=== PATIENT | female | born 1945 | race Caucasian/White ===

== ENCOUNTER 2018-01-12 01:25 | Inpatient (IN) | payer OTHER, MEDICARE ==
[~2018-01-12] VITALS: Ht 165.1 cm; Wt 136.1 kg
[2018-01-12 01:28] VITALS: BP_SYST 163
[2018-01-12] MEDS ORDERED: fentaNYL CITRATE/PF 100 MCG/2 ML AMP IVP ONE (01:45)
[2018-01-12] MEDS ORDERED: ONDANSETRON HCL 4 MG/2 ML VIAL IVP ONE (01:45)
[2018-01-12 02:11] LABS: BASOPHILS # (AUTO) 0.1 K/uL (0.0-0.2); BASOPHILS % (AUTO) 0.8 % (0.0-2.0); EOSINOPHILS # (AUTO) 0.3 K/uL (0.0-0.4); EOSINOPHILS % (AUTO) 2.2 % (0.0-4.0); HEMATOCRIT 43.8 % (36-48); HEMOGLOBIN 14.3 g/dL (12.0-16.0); LYMPHOCYTES % (AUTO) 15.3 % (20.5-51.5); MEAN CORPUSCULAR HEMOGLOBIN 29 pg (27-31); MEAN CORPUSCULAR HGB CONC 33 % (32-36); MEAN CORPUSCULAR VOLUME 87 fL (79.0-98.0); MONOCYTES # (AUTO) 0.9 K/uL (0.0-1.0); MONOCYTES % (AUTO) 6.7 % (1.7-9.3); NEUTROPHILS # (AUTO) 9.8 K/uL (1.8-7.7); PLATELET COUNT (AUTO) 284 K/uL (130-430); RED BLOOD CELL COUNT(AUTO) 5.01 MIL/uL (4.2-6.2); RED CELL DISTRIBUTION WIDTH 12.7 % (9.0-15.0); WHITE BLOOD COUNT (AUTO) 13.1 K/uL (4.8-10.8)
[2018-01-12 02:19] LABS: ANION GAP 12 (5-15); CALCIUM 9.8 mg/dL (8.4-11.0); CHLORIDE 103 mmol/L (98-107); CREATININE 0.92 mg/dL (0.55-1.30); GLUCOSE 163 mg/dL (70-99); POTASSIUM 4.4 mmol/L (3.5-5.1); SODIUM SERUM 138 mmol/L (136-145); UREA NITROGEN, BLOOD 24 mg/dL (8-21)
[2018-01-12 02:23] LABS: ALANINE AMINOTRANSFERASE 42 U/L (12-78); ALBUMIN 3.6 g/dL (3.4-4.8); ASPARTATE AMINOTRANSFERASE 27 U/L (10-37); LIPASE 140 U/L (73-393); TOTAL BILIRUBIN 0.6 mg/dL (0.0-1.0)
[2018-01-12 03:26] LABS: BILIRUBIN,URINE NEGATIVE (NEGATIVE); BLOOD, URINE NEGATIVE (NEGATIVE); CLARITY/URINE CLEAR (CLEAR); COLOR,URINE YELLOW (YELLOW); GLUCOSE,URINE NEGATIVE (NEGATIVE); KETONES,URINE NEGATIVE (NEGATIVE); LEUKOCYTE ESTERASE ,URINE 2+ (NEGATIVE); NITRITE, URINE NEGATIVE (NEGATIVE); PROTEIN URINE NEGATIVE (NEGATIVE); UROBILINOGEN,URINE 0.2 (0.2-1.0)
[2018-01-12 03:32] LABS: BACTERIA,URINE MODERATE /HPF (None Seen); RBC,URINE 0-3 /HPF (0-3); WBC,URINE 20-50 /HPF (0-3)
[2018-01-12] MEDS ORDERED: metroNIDAZOLE 500 mg/NS 100 ML IV ONE (03:45)
[2018-01-12] MEDS ORDERED: MORPHINE 2 MG/ML INJ. SYRINGE IVP ONE (03:45)
[2018-01-12] MEDS ORDERED: cefTRIAXone 1 GM IVPB PREMIX 50 ML IV ONE (03:45)
[2018-01-12] MEDS ORDERED: AMLO5TAB4 PO (03:48)
[2018-01-12] MEDS ORDERED: DICL75TA5 PO (03:48)
[2018-01-12] MEDS ORDERED: CLOP75TA2 PO (03:48)
[2018-01-12] MEDS ORDERED: CLOB30CR27 TP (03:48)
[2018-01-12] MEDS ORDERED: GABA-531 PO ×2 (03:48→10:53)
[2018-01-12] MEDS ORDERED: LOP600 PO ×2 (03:49→10:56)
[2018-01-12] MEDS ORDERED: LISI-600 PO ×2 (03:56→10:56)
[2018-01-12] MEDS ORDERED: LORA1TAB PO (03:56)
[2018-01-12] MEDS ORDERED: TRAM50TA92 PO (03:56)
[2018-01-12] MEDS ORDERED: PRAV40TA PO ×2 (03:56→10:56)
[2018-01-12] MEDS ORDERED: ONDA4TAB5 PO (03:56)
[2018-01-12] MEDS ORDERED: LEVO75TA7 PO (03:56)
[2018-01-12] MEDS ORDERED: NADO20TA9 PO (03:56)
[2018-01-12] MEDS ORDERED: LATA2.5D6 OP (03:56)
[2018-01-12] MEDS ORDERED: PRO40 PO (03:56)
[2018-01-12] MEDS ORDERED: MORPHINE SULFATE 10 MG/ML VIAL ONE (04:00)
[2018-01-12 04:15] VITALS: BP_SYST 131
[2018-01-12] MEDS ORDERED: MORPHINE 4 MG/ML INJ. SYRINGE IVP PRN (07:30)
[2018-01-12] MEDS ORDERED: LORazepam 1 MG TABLET PO PRN (07:30)
[2018-01-12] MEDS: GABAPENTIN 300 MG CAPSULE PO SCH ×4 (08:25→21:32)
[2018-01-12] MEDS: D5NS 1,000 ML IV SCH (08:26)
[2018-01-12] MEDS: LEVOTHYROXINE SODIUM 0.075 MG TABLET PO SCH (08:26)
[2018-01-12] MEDS: CLOPIDOGREL BISULFATE 75 MG TABLET PO SCH (08:26)
[2018-01-12] MEDS: MORPHINE 4 MG/ML INJ. SYRINGE IVP PRN ×2 (08:26→17:14)
[2018-01-12] MEDS: metroNIDAZOLE 500 mg/NS 100 ML IV SCH ×3 (08:36→23:37)
[2018-01-12 08:45] VITALS: BP_SYST 137
[2018-01-12] MEDS: SIMVASTATIN 20 MG TABLET PO SCH (09:00)
[2018-01-12] MEDS: LISINOPRIL 20 MG TABLET PO SCH (09:00)
[2018-01-12] MEDS ORDERED: DEXTROSE 50% JECT 50 ML DISP.SYRIN IVP PRN (09:30)
[2018-01-12] MEDS: LEVOFLOXACIN 500 MG/D5W 100 ML IV SCH (09:52)
[2018-01-12] MEDS: ONDANSETRON HCL 4 MG/2 ML VIAL IVP PRN ×3 (09:52→23:37)
[2018-01-12] MEDS ORDERED: GLIM4TAB PO (09:58)
[2018-01-12] MEDS: METOPROLOL TARTRATE 25 MG TABLET PO SCH ×2 (10:03→21:32)
[2018-01-12] MEDS: amLODIPine BESYLATE 5 MG TABLET PO SCH (10:04)
[2018-01-12] MEDS: PANTOPRAZOLE SODIUM 40 MG TAB PO SCH (10:04)
[2018-01-12] MEDS: GEMFIBROZIL 600 MG TABLET (LOPID) PO SCH (10:04)
[2018-01-12] MEDS: INSULIN REGULAR, HUMAN 100 UNITS/ML, 10 ML VIAL (novoLIN R) SUBCUT PRN (12:07)
[2018-01-12 18:05] VITALS: BP_SYST 135
[2018-01-12] MEDS: METOCLOPRAMIDE HCL 10 MG/2 ML VIAL IVP PRN (18:36)
[2018-01-12 19:50] VITALS: BP_SYST 124
[2018-01-12] MEDS: LATANOPROST 2.5 ML DROPS (XALATAN) OP SCH (21:33)
[2018-01-12] MEDS: ACETAMINOPHEN 325 MG TABLET PO PRN (23:38)
[2018-01-13 00:49] VITALS: BP_SYST 145
[2018-01-13] MEDS: D5NS 1,000 ML IV SCH ×3 (05:35→22:48)
[2018-01-13] MEDS: LEVOTHYROXINE SODIUM 0.075 MG TABLET PO SCH (06:26)
[2018-01-13 08:00] VITALS: BP_SYST 128
[2018-01-13] MEDS: CLOPIDOGREL BISULFATE 75 MG TABLET PO SCH (08:54)
[2018-01-13] MEDS: PANTOPRAZOLE SODIUM 40 MG TAB PO SCH (08:55)
[2018-01-13] MEDS: SIMVASTATIN 20 MG TABLET PO SCH (08:55)
[2018-01-13] MEDS: GEMFIBROZIL 600 MG TABLET (LOPID) PO SCH (08:55)
[2018-01-13] MEDS: GABAPENTIN 300 MG CAPSULE PO SCH ×4 (08:55→20:26)
[2018-01-13] MEDS: amLODIPine BESYLATE 5 MG TABLET PO SCH (08:56)
[2018-01-13] MEDS: LISINOPRIL 20 MG TABLET PO SCH (08:56)
[2018-01-13] MEDS: METOPROLOL TARTRATE 25 MG TABLET PO SCH ×2 (08:56→20:27)
[2018-01-13] MEDS: ACETAMINOPHEN 325 MG TABLET PO PRN ×3 (08:57→20:36)
[2018-01-13] MEDS: metroNIDAZOLE 500 mg/NS 100 ML IV SCH ×3 (09:00→23:50)
[2018-01-13] MEDS: LEVOFLOXACIN 500 MG/D5W 100 ML IV SCH (10:22)
[2018-01-13] MEDS ORDERED: MINERAL OIL 30 ML UDC PO ONE (10:45)
[2018-01-13] MEDS ORDERED: MAGNESIUM CITRATE 300 ML ORAL SOLUTION PO ONE (10:45)
[2018-01-13 11:03] LABS: BASOPHILS # (AUTO) 0.1 K/uL (0.0-0.2); BASOPHILS % (AUTO) 0.6 % (0.0-2.0); EOSINOPHILS # (AUTO) 0.2 K/uL (0.0-0.4); EOSINOPHILS % (AUTO) 1.8 % (0.0-4.0); HEMOGLOBIN 13.4 g/dL (12.0-16.0); MEAN CORPUSCULAR HEMOGLOBIN 29 pg (27-31); MEAN CORPUSCULAR HGB CONC 33 % (32-36); MEAN CORPUSCULAR VOLUME 88 fL (79.0-98.0); MONOCYTES # (AUTO) 0.6 K/uL (0.0-1.0); MONOCYTES % (AUTO) 5.9 % (1.7-9.3); NEUTROPHILS # (AUTO) 7.5 K/uL (1.8-7.7); NEUTROPHILS % (AUTO) 72.7 % (40.0-70.0); PLATELET COUNT (AUTO) 275 K/uL (130-430); RED BLOOD CELL COUNT(AUTO) 4.66 MIL/uL (4.2-6.2); RED CELL DISTRIBUTION WIDTH 12.7 % (9.0-15.0); WHITE BLOOD COUNT (AUTO) 10.4 K/uL (4.8-10.8)
[2018-01-13 11:09] LABS: ANION GAP 10 (5-15); CALCIUM 9.3 mg/dL (8.4-11.0); CHLORIDE 102 mmol/L (98-107); CREATININE 1.03 mg/dL (0.55-1.30); GLUCOSE 160 mg/dL (70-99); POTASSIUM 4.1 mmol/L (3.5-5.1); SODIUM SERUM 139 mmol/L (136-145); UREA NITROGEN, BLOOD 19 mg/dL (8-21)
[2018-01-13 11:15] LABS: ALANINE AMINOTRANSFERASE 38 U/L (12-78); ALBUMIN 3.4 g/dL (3.4-4.8); ASPARTATE AMINOTRANSFERASE 38 U/L (10-37); TOTAL BILIRUBIN 0.5 mg/dL (0.0-1.0)
[2018-01-13 12:00] VITALS: BP_SYST 128
[2018-01-13 16:00] VITALS: BP_SYST 124
[2018-01-13 20:00] VITALS: BP_SYST 124
[2018-01-13] MEDS: LATANOPROST 2.5 ML DROPS (XALATAN) OP SCH (20:28)
[2018-01-13] MEDS: MINERAL OIL 30 ML UDC PO SCH (20:28)
[2018-01-13 23:46] VITALS: BP_SYST 123
[2018-01-14] VITALS: BP_SYST 119
[2018-01-14] MEDS: MORPHINE 4 MG/ML INJ. SYRINGE IVP PRN (02:16)
[2018-01-14] MEDS: ONDANSETRON HCL 4 MG/2 ML VIAL IVP PRN ×2 (02:19→17:59)
[2018-01-14] MEDS: LEVOTHYROXINE SODIUM 0.075 MG TABLET PO SCH (06:00)
[2018-01-14] MEDS: INSULIN REGULAR, HUMAN 100 UNITS/ML, 10 ML VIAL (novoLIN R) SUBCUT PRN (06:03)
[2018-01-14 08:00] VITALS: BP_SYST 145
[2018-01-14] MEDS: GEMFIBROZIL 600 MG TABLET (LOPID) PO SCH (08:44)
[2018-01-14] MEDS: CLOPIDOGREL BISULFATE 75 MG TABLET PO SCH (08:44)
[2018-01-14] MEDS: SIMVASTATIN 20 MG TABLET PO SCH (08:44)
[2018-01-14] MEDS: metroNIDAZOLE 500 mg/NS 100 ML IV SCH ×3 (08:44→23:44)
[2018-01-14] MEDS: PANTOPRAZOLE SODIUM 40 MG TAB PO SCH (08:44)
[2018-01-14] MEDS: METOPROLOL TARTRATE 25 MG TABLET PO SCH ×2 (08:45→21:04)
[2018-01-14] MEDS: amLODIPine BESYLATE 5 MG TABLET PO SCH (08:45)
[2018-01-14] MEDS: GABAPENTIN 300 MG CAPSULE PO SCH ×3 (08:46→21:03)
[2018-01-14] MEDS: LISINOPRIL 20 MG TABLET PO SCH (08:46)
[2018-01-14] MEDS: MINERAL OIL 30 ML UDC PO SCH ×2 (08:46→21:00)
[2018-01-14] MEDS: LEVOFLOXACIN 500 MG/D5W 100 ML IV SCH (10:39)
[2018-01-14 12:00] VITALS: BP_SYST 138
[2018-01-14] MEDS ORDERED: traMADol HCL HCL 50 MG TABLET (ULTRAM) PO PRN (13:00)
[2018-01-14 16:05] VITALS: BP_SYST 123
[2018-01-14] MEDS: traMADol HCL HCL 50 MG TABLET (ULTRAM) PO PRN ×2 (16:20→23:45)
[2018-01-14 19:20] VITALS: BP_SYST 130
[2018-01-14] MEDS: LATANOPROST 2.5 ML DROPS (XALATAN) OP SCH (21:02)
[2018-01-14] MEDS: DOCUSATE SODIUM 250 MG CAPSULE PO SCH (21:03)
[2018-01-14] MEDS: METOCLOPRAMIDE HCL 10 MG/2 ML VIAL IVP PRN (23:45)
[2018-01-15 00:29] VITALS: BP_SYST 111
[2018-01-15] MEDS: LEVOTHYROXINE SODIUM 0.075 MG TABLET PO SCH (06:30)
[2018-01-15 08:00] VITALS: BP_SYST 141
[2018-01-15] MEDS: GEMFIBROZIL 600 MG TABLET (LOPID) PO SCH (08:05)
[2018-01-15] MEDS: DOCUSATE SODIUM 250 MG CAPSULE PO SCH (08:06)
[2018-01-15] MEDS: CLOPIDOGREL BISULFATE 75 MG TABLET PO SCH (08:06)
[2018-01-15] MEDS: SIMVASTATIN 20 MG TABLET PO SCH (08:06)
[2018-01-15] MEDS: PANTOPRAZOLE SODIUM 40 MG TAB PO SCH (08:07)
[2018-01-15] MEDS: amLODIPine BESYLATE 5 MG TABLET PO SCH (08:07)
[2018-01-15] MEDS: METOPROLOL TARTRATE 25 MG TABLET PO SCH (08:08)
[2018-01-15] MEDS: LISINOPRIL 20 MG TABLET PO SCH (08:08)
[2018-01-15] MEDS: metroNIDAZOLE 500 mg/NS 100 ML IV SCH (08:09)
[2018-01-15] MEDS: MINERAL OIL 30 ML UDC PO SCH (09:00)
[2018-01-15] MEDS: GABAPENTIN 300 MG CAPSULE PO SCH (09:00)
[2018-01-15] MEDS: ACETAMINOPHEN 325 MG TABLET PO PRN (09:19)
[2018-01-15] MEDS: LEVOFLOXACIN 500 MG/D5W 100 ML IV SCH (09:19)
[2018-01-15 12:00] VITALS: BP_SYST 117
[2018-01-15] MEDS ORDERED: METR500T PO (13:34)
[2018-01-15] MEDS ORDERED: LEVO500T20 PO (13:34)
[2018-01-15] MEDS ORDERED: L.RH1CAP PO (13:35)
[2018-01-15 13:56] VITALS: BP_SYST 97
== END 2018-01-15 15:00 | disposition home or self-care (01) | DRG 392 ==
LOC: SED 01:25 → SMU 03:57
PROVIDERS: ADMIT Internal Medicine Hospice and Palliative Medicine; ATTEND Internal Medicine Hospice and Palliative Medicine
DX: K57.92 Diverticulitis of intestine, part unspecified, without perforation or abscess without bleeding (principal); E11.9 Type 2 diabetes mellitus without complications; E66.01 Morbid (severe) obesity due to excess calories; N39.0 Urinary tract infection, site not specified; Z68.42 Body mass index [BMI] 45.0-49.9, adult; I25.10 Atherosclerotic heart disease of native coronary artery without angina pectoris; I10 Essential (primary) hypertension; K59.00 Constipation, unspecified; E78.5 Hyperlipidemia, unspecified; M54.9 Dorsalgia, unspecified; G89.4 Chronic pain syndrome; Z95.5 Presence of coronary angioplasty implant and graft
CPT/HCPCS: 36415; 80053; 81000-TC; 82962; 83690-TC; 85025; 87040-TC; 87086; 87186-TC; 96365; 96375; 99285; J0696; J1815; J1956; J2270; J2405; J2765; J3010; J3490; J7042

== ENCOUNTER 2019-11-03 13:49 | Emergency (ER) | payer OTHER, MEDICARE ==
[~2019-11-03] VITALS: Ht 165.1 cm; Wt 122.5 kg
[~2019-11-03 13:49] MED LIST: AMLO5TAB4 PO; CLOB30CR27 TP; CLOP75TA2 PO; DICL75TA5 PO; GABA-531 PO; GLIM4TAB PO; L.RH1CAP PO; LEVO500T20 PO; LEVO75TA7 PO; LISI-600 PO; LOP600 PO; LORA1TAB PO; METR500T PO; NADO20TA9 PO; ONDA4TAB5 PO; PRAV40TA PO; PRO40 PO; TRAM50TA92 PO; XALEYE OP
[2019-11-03 14:12] VITALS: BP_SYST 162
--- NOTE | 2019-11-03 14:12 | NUR ---
Patient to ER bed 7 to gown for evaluation. Side rails up. Report given to MAGALI Celestin.
--- NOTE | 2019-11-03 14:36 | NUR ---
MD ODOMAW AT BEDSIDE ASSESSING.
[2019-11-03] MEDS ORDERED: KETOROLAC TROMETHAMINE 60 MG/2 ML VIAL IM ONE ×2 (14:45→15:15)
[2019-11-03 14:48] LABS: BILIRUBIN,URINE NEGATIVE (NEGATIVE); BLOOD, URINE NEGATIVE (NEGATIVE); CLARITY/URINE CLEAR (CLEAR); COLOR,URINE YELLOW (YELLOW); GLUCOSE,URINE NEGATIVE (NEGATIVE); KETONES,URINE NEGATIVE (NEGATIVE); LEUKOCYTE ESTERASE ,URINE 1+ (NEGATIVE); NITRITE, URINE NEGATIVE (NEGATIVE); PROTEIN URINE NEGATIVE (NEGATIVE); UROBILINOGEN,URINE 0.2 (0.2-1.0)
[2019-11-03 15:02] LABS: BACTERIA,URINE FEW /HPF (None Seen); MUCUS,URINE None Seen /LPF (None Seen); RBC,URINE NONE SEEN /HPF (0-3)
[2019-11-03] MEDS ORDERED: cefTRIAXone 1 GM in LIDOCAINE 1%, 20 ML MDV 2.1 ML IM ONE (15:15)
[2019-11-03] MEDS ORDERED: CLOB50SO2 TP (16:20)
[2019-11-03] MEDS ORDERED: GLU850 PO (16:20)
[2019-11-03] MEDS ORDERED: [UNRECOGNIZED DRUG - OTHER] VG (16:20)
[2019-11-03] MEDS ORDERED: MOME45CR17 TP (16:20)
[2019-11-03] MEDS ORDERED: nystatin TP (16:20)
[2019-11-03] MEDS ORDERED: HYDR-4272 PO (16:20)
[2019-11-03] MEDS ORDERED: CHOL500037 PO (16:20)
[2019-11-03] MEDS ORDERED: LISI40TA4 PO (16:20)
[2019-11-03] MEDS ORDERED: SITA100T11 PO (16:20)
--- NOTE | 2019-11-03 16:26 | NUR ---
Patient given written and verbal discharge instructions and verbalizes understanding. ER MD discussed with patient the results and treatment provided. Patient in stable condition. ID arm band removed. Rx of CIPRO given. Patient educated on pain management and to follow up with PMD. Pain Scale 1/10. Opportunity for questions provided and answered. Medication side effect fact sheet provided.
[2019-11-03 16:30] VITALS: BP_SYST 151
== END 2019-11-03 16:30 | disposition home or self-care (01) ==
LOC: SED 13:49
DX: N39.0 Urinary tract infection, site not specified (principal); J45.909 Unspecified asthma, uncomplicated; E11.9 Type 2 diabetes mellitus without complications; I10 Essential (primary) hypertension; Z88.5 Allergy status to narcotic agent; Z79.84 Long term (current) use of oral hypoglycemic drugs; Z79.899 Other long term (current) drug therapy
CPT/HCPCS: 81000; 82962; 87086; 96372; 99283; J0696; J1885; J2001

== ENCOUNTER 2021-05-25 10:01 | Emergency (ER) | payer OTHER, MEDICARE ==
[~2021-05-25] VITALS: Ht 165.1 cm; Wt 117.9 kg
[~2021-05-25 10:01] MED LIST changes: +CHOL500037 PO; -CLOB30CR27 TP; +CLOB50SO2 TP; -CLOP75TA2 PO; -DICL75TA5 PO; +GLU850 PO; +HYDR-4272 PO; -LEVO500T20 PO; -LISI-600 PO; +LISI40TA13 PO; -METR500T PO; +MOME45CR17 TP; +SITA100T11 PO; +[UNRECOGNIZED DRUG - OTHER] VG; +nystatin TP
[2021-05-25 10:20] VITALS: BP_SYST 143
--- NOTE | 2021-05-25 10:20 | NUR ---
Patient to ER bed 7 to gown for evaluation. Side rails up.
--- NOTE | 2021-05-25 10:21 | NUR ---
Pt bib ambulance with complaint of RLQ abdominal pain X1day 5/10 and constipation X3days. Pt AAOX4 speaking full sentences. Pt resting in gurney attached to monitor VSS no distress noted.
--- NOTE | 2021-05-25 10:31 | NUR ---
ER at bedside examining patient.
--- NOTE | 2021-05-25 10:48 | NUR ---
Lab at bedside.
--- NOTE | 2021-05-25 10:58 | NUR ---
Pt assisted to restroom.
[2021-05-25 11:08] LABS: BASOPHILS # (AUTO) 0.2 K/uL (0.0-0.2); EOSINOPHILS # (AUTO) 0.2 K/uL (0.0-0.4); EOSINOPHILS % (AUTO) 1.1 % (0.0-4.0); HEMATOCRIT 45.2 % (36-48); HEMOGLOBIN 15.2 g/dL (12.0-16.0); LYMPHOCYTES # (AUTO) 1.5 K/uL (1.0-5.5); LYMPHOCYTES % (AUTO) 9.5 % (20.5-51.5); MEAN CORPUSCULAR HEMOGLOBIN 29 pg (27-31); MEAN CORPUSCULAR HGB CONC 34 % (32-36); MEAN CORPUSCULAR VOLUME 86 fL (79.0-98.0); MONOCYTES # (AUTO) 1.1 K/uL (0.0-1.0); MONOCYTES % (AUTO) 7.1 % (1.7-9.3); NEUTROPHILS # (AUTO) 12.9 K/uL (1.8-7.7); NEUTROPHILS % (AUTO) 81.3 % (40.0-70.0); PLATELET COUNT (AUTO) 227 K/uL (130-430); RED BLOOD CELL COUNT(AUTO) 5.24 MIL/uL (4.2-6.2); RED CELL DISTRIBUTION WIDTH 15.7 % (9.0-15.0); WHITE BLOOD COUNT (AUTO) 15.9 K/uL (4.8-10.8)
--- NOTE | 2021-05-25 11:08 | NUR ---
Pt off to CT with tech on a wheelchair.
[2021-05-25 11:09] LABS: ANION GAP 11 (5-15); CALCIUM 9.2 mg/dL (8.4-11.0); CHLORIDE 104 mmol/L (98-107); CREATININE 1.24 mg/dL (0.55-1.30); GLUCOSE 205 mg/dL (70-99); POTASSIUM 4.8 mmol/L (3.5-5.1); SODIUM SERUM 137 mmol/L (136-145); UREA NITROGEN, BLOOD 32 mg/dL (8-21)
[2021-05-25 11:15] LABS: ALANINE AMINOTRANSFERASE 53 U/L (12-78); ALBUMIN 3.6 g/dL (3.4-4.8); ASPARTATE AMINOTRANSFERASE 32 U/L (10-37); TOTAL BILIRUBIN 0.7 mg/dL (0.0-1.0)
--- NOTE | 2021-05-25 11:15 | NUR ---
Pt back from CT.
--- NOTE | 2021-05-25 11:42 | NUR ---
# 22 gauge angiocath placed to LWrist. Use of asceptic technique. Opsite placed over site. Blood return noted. Blood for lab drawn from site. Flushed with 10 cc of normal saline. No evidence of infiltration noted. Patient tolerated well.
[2021-05-25] MEDS: SODIUM PHOSPHATE,MONO-DIBASIC 133 ML ENEMA RC ONE (11:45)
[2021-05-25] MEDS: NACL 0.9% 1,000 ML IV ONE (11:45)
--- NOTE | 2021-05-25 11:51 | NUR ---
Enema given pt tolerated well. No distress noted.
--- NOTE | 2021-05-25 12:47 | NUR ---
Pt had a large bowell movement at this time at this time, MD notified.
[2021-05-25] MEDS ORDERED: BISA10SU77 RC (13:46)
[2021-05-25 14:14] LABS: BILIRUBIN,URINE NEGATIVE (NEGATIVE); BLOOD, URINE 1+ (NEGATIVE); COLOR,URINE YELLOW (YELLOW); GLUCOSE,URINE 3+ (NEGATIVE); KETONES,URINE NEGATIVE (NEGATIVE); LEUKOCYTE ESTERASE ,URINE NEGATIVE (NEGATIVE); NITRITE, URINE NEGATIVE (NEGATIVE); PROTEIN URINE NEGATIVE (NEGATIVE); UROBILINOGEN,URINE 0.2 (0.2-1.0)
[2021-05-25 14:20] LABS: CLARITY/URINE SLIGHTLY HAZY (CLEAR)
--- NOTE | 2021-05-25 14:28 | NUR ---
Patient given written and verbal discharge instructions and verbalizes understanding. ER MD discussed with patient the results and treatment provided. Patient in stable condition. ID arm band removed. Rx of Bisacodyl given. Patient educated on pain management and to follow up with PMD. Pain Scale 2/10 tolerable for patient . Opportunity for questions provided and answered. Medication side effect fact sheet provided.
[2021-05-25 14:29] VITALS: BP_SYST 143
[2021-05-25 14:50] LABS: BACTERIA,URINE FEW /HPF (None Seen)
[2021-05-25 14:51] LABS: MUCUS,URINE 1+ /LPF (None Seen)
== END 2021-05-25 14:29 | disposition home or self-care (01) ==
LOC: SED 10:01
DX: K59.00 Constipation, unspecified (principal); J45.909 Unspecified asthma, uncomplicated; I10 Essential (primary) hypertension; E11.9 Type 2 diabetes mellitus without complications; Z88.5 Allergy status to narcotic agent; Z79.84 Long term (current) use of oral hypoglycemic drugs; Z79.899 Other long term (current) drug therapy
CPT/HCPCS: 36415; 74176; 76376; 80053; 81000; 85025; 87086; 96360; 99284; J7030

== ENCOUNTER 2021-08-14 12:34 | Inpatient (IN) | payer OTHER, MEDICARE, SELFPAY ==
[~2021-08-14] VITALS: Ht 165.1 cm; Wt 120.2 kg
[~2021-08-14 12:34] MED LIST changes: +BISA10SU77 RC
[2021-08-14 13:00] VITALS: BP_SYST 183
--- NOTE | 2021-08-14 13:07 | NUR ---
Patient to ER bed 5 to gown for evaluation. Side rails up. Report given to Teodoro DE LOS SANTOS.
--- NOTE | 2021-08-14 13:11 | NUR ---
Pt ambulated to restroom for urine specimen.
--- NOTE | 2021-08-14 13:15 | NUR ---
Pt attempted to give urine but was unsuccessfull and missed the cup. Pt given water and will reattempt.
--- NOTE | 2021-08-14 13:15 | NUR ---
Pt came into ER with complaint of burning and frequency with urination with lower abdominal cramping 3/10 with diarrhea X7days. Pt reports getting a urinalysis on tuesday and recieving a call from her physician with an abnormal result but doesnt remember what it was and was advised to come into ER. Pt is on fifth day of Cipro prescribed by her physician. Pt AAOX4 speaking full sentences. Sitting up in rney Vital signs holding no distress noted at this time.
--- NOTE | 2021-08-14 13:40 | NUR ---
Pt ambulated to restroom for urine specimen.
--- NOTE | 2021-08-14 13:48 | NUR ---
Urine collected and sent to lab.
--- NOTE | 2021-08-14 13:59 | NUR ---
ER at bedside examining patient.
--- NOTE | 2021-08-14 14:00 | NUR ---
Lab at bedside.
[2021-08-14 14:13] LABS: BILIRUBIN,URINE NEGATIVE (NEGATIVE); BLOOD, URINE 2+ (NEGATIVE); CLARITY/URINE SL CLOUDY (CLEAR); COLOR,URINE YELLOW (YELLOW); GLUCOSE,URINE 3+ (NEGATIVE); KETONES,URINE NEGATIVE (NEGATIVE); LEUKOCYTE ESTERASE ,URINE TRACE (NEGATIVE); NITRITE, URINE NEGATIVE (NEGATIVE); PROTEIN URINE NEGATIVE (NEGATIVE); UROBILINOGEN,URINE 0.2 (0.2-1.0)
--- NOTE | 2021-08-14 14:35 | NUR ---
Patient transported to radiology via wheelchair, accompanied by tech.
[2021-08-14 14:57] LABS: BASOPHILS # (AUTO) 0.2 K/uL (0.0-0.2); BASOPHILS % (AUTO) 1.3 % (0.0-2.0); EOSINOPHILS # (AUTO) 0.3 K/uL (0.0-0.4); EOSINOPHILS % (AUTO) 2.2 % (0.0-4.0); HEMOGLOBIN 15.2 g/dL (12.0-16.0); LYMPHOCYTES # (AUTO) 1.9 K/uL (1.0-5.5); LYMPHOCYTES % (AUTO) 13.3 % (20.5-51.5); MEAN CORPUSCULAR HEMOGLOBIN 30 pg (27-31); MEAN CORPUSCULAR HGB CONC 34 % (32-36); MEAN CORPUSCULAR VOLUME 88 fL (79.0-98.0); MONOCYTES # (AUTO) 1.2 K/uL (0.0-1.0); MONOCYTES % (AUTO) 8.2 % (1.7-9.3); NEUTROPHILS # (AUTO) 10.7 K/uL (1.8-7.7); PLATELET COUNT (AUTO) 228 K/uL (130-430); RED BLOOD CELL COUNT(AUTO) 5.09 MIL/uL (4.2-6.2); RED CELL DISTRIBUTION WIDTH 14.6 % (9.0-15.0); WHITE BLOOD COUNT (AUTO) 14.3 K/uL (4.8-10.8)
--- NOTE | 2021-08-14 15:06 | NUR ---
Pt back from radiology.
[2021-08-14 15:08] LABS: BACTERIA,URINE RARE /HPF (None Seen); WBC,URINE 20-50 /HPF (0-3)
[2021-08-14 15:10] LABS: ANION GAP 9 (5-15); CALCIUM 9.5 mg/dL (8.4-11.0); CHLORIDE 103 mmol/L (98-107); CREATININE 1.38 mg/dL (0.55-1.30); GLUCOSE 182 mg/dL (70-99); POTASSIUM 4.5 mmol/L (3.5-5.1); SODIUM SERUM 136 mmol/L (136-145); UREA NITROGEN, BLOOD 33 mg/dL (8-21)
[2021-08-14 15:12] LABS: ALANINE AMINOTRANSFERASE 55 U/L (12-78); ALBUMIN 3.5 g/dL (3.4-4.8); ASPARTATE AMINOTRANSFERASE 28 U/L (10-37); LIPASE 110 U/L (73-393); TOTAL BILIRUBIN 0.6 mg/dL (0.0-1.0)
--- NOTE | 2021-08-14 15:20 | NUR ---
# 20 gauge angiocath placed to LFA. Use of asceptic technique. Opsite placed over site. Blood return noted. Blood for lab drawn from site. Flushed with 10 cc of normal saline. No evidence of infiltration noted. Patient tolerated well.
[2021-08-14] MEDS ORDERED: EMPA10TA PO (16:43)
[2021-08-14] MEDS ORDERED: NOR10 PO (16:43)
--- NOTE | 2021-08-14 16:43 | NUR ---
Medication reconciliation completed with information provided by Pt. Any prior medication reconciliation on file was reviewed and corrected.
--- NOTE | 2021-08-14 16:43 | NUR ---
Covid swab collected and sent to lab.
--- NOTE | 2021-08-14 16:59 | NUR ---
Patient transported to radiology via wheelchair, accompanied by tech.
[2021-08-14] MEDS ORDERED: PIPERACILLIN/TAZO 3.375 GM in NS 50 ML IV ONE (17:00)
[2021-08-14] MEDS ORDERED: PIPERACILLIN/TAZOBACTAM 3.375 GM/VIAL (ZOSYN) IV ONE (17:04)
--- NOTE | 2021-08-14 17:10 | NUR ---
Pt back from CT.
--- NOTE | 2021-08-14 17:29 | NUR ---
Patient will be admitted to care of Dr. Adames. Admitted to Medsurg unit. Will go to room pending. Belongings list completed. Complete and up to date summary report printed. SBAR report to be given at bedside with opportunity for questions.
--- NOTE | 2021-08-14 17:30 | NUR ---
Spoke with Madelin charge nurse. Pt will go to room 119A.
--- NOTE | 2021-08-14 17:33 | NUR ---
Transferred pt to room 119A on [facility] accompanied by staff. ETA now
[2021-08-14 18:00] VITALS: BP_SYST 134
--- NOTE | 2021-08-14 18:00 | NUR ---
1800: Received pt A+O x4 from ER at 1800. Pt c/o 04/18 pain to nadira and R shoulder but states both are chronic. IV noted to L FA- 20g- patent. CSMW satisfactory. No headache, dizziness, chest pain, numbness, tingling, edema, SOB, cough. Lungs clear. RA 97%. BS x4. good appetite. ABD obese. passing gas. LBM Aug 13. voiding- burning, frequency, urgency noted. No nausea or vomiting. No skin concerns. IND + 2ww for ADLs and mobility. Dinner tray (diabetic) provided. Slip socks placed on pt. No other voiced concerns. Will continue to monitor.
[2021-08-14 19:02] VITALS: BP_SYST 134
[2021-08-14 20:00] VITALS: BP_SYST 127
[2021-08-14] MEDS ORDERED: 0.45% NS 500 ML IV ONE (20:15)
[2021-08-14] MEDS ORDERED: LORazepam 1 MG TABLET PO PRN (20:15)
[2021-08-14] MEDS ORDERED: DEXTROSE 50% JECT 50 ML DISP.SYRIN IVP PRN (20:15)
[2021-08-14] MEDS ORDERED: traZODone HCL 50 MG TABLET (DESYREL) PO PRN (20:30)
[2021-08-14] MEDS ORDERED: PRAVASTATIN SODIUM 20 MG TABLET (PRAVACHOL) PO SCH (21:00)
[2021-08-14] MEDS ORDERED: NADOLOL 20 MG TABLET(CORGARD) PO SCH (21:00)
[2021-08-14] MEDS: LIDOCAINE PATCH 5% 1 EA TP SCH (21:30)
[2021-08-14] MEDS: GEMFIBROZIL 600 MG TABLET (LOPID) PO SCH (21:47)
[2021-08-14] MEDS: GABAPENTIN 300 MG CAPSULE PO SCH (21:48)
[2021-08-14] MEDS: GLIMEPIRIDE 2 MG TABLET PO SCH (21:48)
[2021-08-14] MEDS: DOCUSATE SODIUM 250 MG CAPSULE PO SCH (21:48)
[2021-08-14] MEDS: INSULIN REGULAR, HUMAN 100 UNITS/ML, 10 ML VIAL (humuLIN R) SUBCUT PRN (22:02)
[2021-08-15] MEDS ORDERED: PIPERACILLIN/TAZOBACTAM 3.375 GM/VIAL (ZOSYN) IV ONE ×2 (00:14→06:58)
[2021-08-15] MEDS: PIPERACILLIN/TAZO 3.375/DEX-IS 50 ML IV SCH ×4 (00:20→18:00)
[2021-08-15] MEDS: ONDANSETRON HCL 4 MG/2 ML VIAL IVP PRN ×2 (01:10→12:55)
[2021-08-15] MEDS: ACETAMINOPHEN 325 MG TABLET PO PRN ×2 (02:15→12:51)
[2021-08-15 05:05] VITALS: BP_SYST 120
[2021-08-15] MEDS: LEVOTHYROXINE SODIUM 0.075 MG TABLET PO SCH (06:30)
[2021-08-15] MEDS: GLIMEPIRIDE 2 MG TABLET PO SCH ×4 (06:30→22:11)
[2021-08-15 07:24] LABS: BASOPHILS # (AUTO) 0.1 K/uL (0.0-0.2); EOSINOPHILS # (AUTO) 0.3 K/uL (0.0-0.4); EOSINOPHILS % (AUTO) 2.7 % (0.0-4.0); HEMATOCRIT 44.9 % (36-48); HEMOGLOBIN 14.8 g/dL (12.0-16.0); LYMPHOCYTES # (AUTO) 2.4 K/uL (1.0-5.5); LYMPHOCYTES % (AUTO) 20.8 % (20.5-51.5); MEAN CORPUSCULAR HEMOGLOBIN 29 pg (27-31); MEAN CORPUSCULAR HGB CONC 33 % (32-36); MEAN CORPUSCULAR VOLUME 89 fL (79.0-98.0); MONOCYTES # (AUTO) 1.1 K/uL (0.0-1.0); MONOCYTES % (AUTO) 10.1 % (1.7-9.3); NEUTROPHILS # (AUTO) 7.4 K/uL (1.8-7.7); NEUTROPHILS % (AUTO) 65.4 % (40.0-70.0); PLATELET COUNT (AUTO) 206 K/uL (130-430); RED BLOOD CELL COUNT(AUTO) 5.07 MIL/uL (4.2-6.2); RED CELL DISTRIBUTION WIDTH 14.6 % (9.0-15.0); WHITE BLOOD COUNT (AUTO) 11.4 K/uL (4.8-10.8)
[2021-08-15 08:59] VITALS: BP_SYST 148
[2021-08-15] MEDS ORDERED: NON-FORMULARY MEDICATION (Empagliflozin (Jardiance) 10 MG) PO SCH (09:00)
[2021-08-15] MEDS: LIDOCAINE PATCH 5% 1 EA TP SCH (09:06)
[2021-08-15] MEDS: PANTOPRAZOLE SODIUM 40 MG TAB PO SCH (09:06)
[2021-08-15] MEDS: DOCUSATE SODIUM 250 MG CAPSULE PO SCH ×2 (09:06→21:00)
[2021-08-15] MEDS: amLODIPine BESYLATE 10 MG TABLET PO SCH (09:07)
[2021-08-15] MEDS: ATORVASTATIN 10 MG TABLET PO SCH (09:07)
[2021-08-15] MEDS: lisinopriL 20 MG TABLET PO SCH (09:08)
[2021-08-15 11:34] VITALS: BP_SYST 142
[2021-08-15 12:23] LABS: CHLORIDE 102 mmol/L (98-107); POTASSIUM 4.9 mmol/L (3.5-5.1); SODIUM SERUM 135 mmol/L (136-145)
[2021-08-15 12:35] LABS: ALANINE AMINOTRANSFERASE 60 U/L (12-78); ALBUMIN 3.5 g/dL (3.4-4.8); ANION GAP 11 (5-15); ASPARTATE AMINOTRANSFERASE 38 U/L (10-37); CALCIUM 8.7 mg/dL (8.4-11.0); CREATININE 1.32 mg/dL (0.55-1.30); GLUCOSE 146 mg/dL (70-99); TOTAL BILIRUBIN 0.9 mg/dL (0.0-1.0); UREA NITROGEN, BLOOD 29 mg/dL (8-21)
[2021-08-15] MEDS ORDERED: POLYETHYLENE GLYCOL 3350, 17 GM/ POWD.PACK PO ONE (14:30)
[2021-08-15 15:53] VITALS: BP_SYST 111
--- NOTE | 2021-08-15 16:28 | NUR ---
LATEST BS 142 MG./DL. NO COVERAGE GIVEN. ASKED FOR CRACKERS AND JUICE
--- NOTE | 2021-08-15 18:00 | NUR ---
ULTRAM PO GIVEN. ASSISTS ON ADLS.
[2021-08-15] MEDS: traMADol HCL HCL 50 MG TABLET (ULTRAM) PO PRN (18:01)
[2021-08-15 20:00] VITALS: BP_SYST 137
--- NOTE | 2021-08-15 21:15 | NUR ---
Patient awake assist out of bed for BSC large stool noted FALL MEASURES implemented , back to bed no SOB on room air 02 SAT 96 %
[2021-08-15] MEDS: GEMFIBROZIL 600 MG TABLET (LOPID) PO SCH (22:10)
[2021-08-15] MEDS: GABAPENTIN 300 MG CAPSULE PO SCH (22:10)
[2021-08-15] MEDS: LATANOPROST 2.5 ML DROPS (XALATAN) OP SCH (22:12)
--- NOTE | 2021-08-16 00:12 | NUR ---
TRAMADOL 50 MG PO administer for ACUTE PAIN 5/10 assist for position change off loading with pillows helpful .
[2021-08-16] MEDS: PIPERACILLIN/TAZO 3.375/DEX-IS 50 ML IV SCH ×5 (00:46→23:31)
[2021-08-16] MEDS: traMADol HCL HCL 50 MG TABLET (ULTRAM) PO PRN ×3 (00:48→21:32)
[2021-08-16 01:00] VITALS: BP_SYST 144
--- NOTE | 2021-08-16 02:40 | NUR ---
ASSIST Patient out of bed for BSC , large stool noted FALL MEASURES IMPLEMENTED assist as needed monitor .
[2021-08-16] MEDS: LEVOTHYROXINE SODIUM 0.075 MG TABLET PO SCH (06:07)
[2021-08-16] MEDS: GLIMEPIRIDE 2 MG TABLET PO SCH ×4 (06:08→21:29)
[2021-08-16 06:54] LABS: BASOPHILS # (AUTO) 0.1 K/uL (0.0-0.2); BASOPHILS % (AUTO) 1.3 % (0.0-2.0); EOSINOPHILS # (AUTO) 0.3 K/uL (0.0-0.4); EOSINOPHILS % (AUTO) 2.4 % (0.0-4.0); HEMATOCRIT 43.3 % (36-48); HEMOGLOBIN 14.4 g/dL (12.0-16.0); LYMPHOCYTES # (AUTO) 2.3 K/uL (1.0-5.5); LYMPHOCYTES % (AUTO) 21.1 % (20.5-51.5); MEAN CORPUSCULAR HEMOGLOBIN 30 pg (27-31); MEAN CORPUSCULAR HGB CONC 33 % (32-36); MEAN CORPUSCULAR VOLUME 89 fL (79.0-98.0); MONOCYTES # (AUTO) 1.1 K/uL (0.0-1.0); NEUTROPHILS # (AUTO) 7.1 K/uL (1.8-7.7); NEUTROPHILS % (AUTO) 65.2 % (40.0-70.0); PLATELET COUNT (AUTO) 168 K/uL (130-430); RED BLOOD CELL COUNT(AUTO) 4.88 MIL/uL (4.2-6.2); RED CELL DISTRIBUTION WIDTH 14.8 % (9.0-15.0); WHITE BLOOD COUNT (AUTO) 10.9 K/uL (4.8-10.8)
--- NOTE | 2021-08-16 07:38 | NUR ---
NOTES PATIENT AAOX 4. LUNGS BILATERALLY CLEAR. ABDOMEN SOFT AND NON DISTENDED. HAS IV ACCESS ON THE LEFT FOREARM PATENT/DRY. CALL LIGHTS WITHIN REACH . BED LOW POSITION, ALARMED AND LOCKED. WILL CONTINUE
--- NOTE | 2021-08-16 08:00 | NUR ---
HAD BM X 2 SOFT BROWN STOOL
[2021-08-16] MEDS: POLYETHYLENE GLYCOL 3350, 17 GM/ POWD.PACK PO SCH (09:00)
[2021-08-16] MEDS: DOCUSATE SODIUM 250 MG CAPSULE PO SCH ×2 (09:00→21:00)
[2021-08-16] MEDS: ATORVASTATIN 10 MG TABLET PO SCH (09:19)
[2021-08-16] MEDS: PANTOPRAZOLE SODIUM 40 MG TAB PO SCH (09:19)
[2021-08-16] MEDS: lisinopriL 20 MG TABLET PO SCH (09:20)
[2021-08-16] MEDS: LIDOCAINE PATCH 5% 1 EA TP SCH (09:20)
--- NOTE | 2021-08-16 09:20 | NUR ---
DUE MEDS GIVEN
[2021-08-16] MEDS: amLODIPine BESYLATE 10 MG TABLET PO SCH (09:21)
[2021-08-16 09:26] VITALS: BP_SYST 133
[2021-08-16 10:12] LABS: ANION GAP 12 (5-15); CALCIUM 8.8 mg/dL (8.4-11.0); CHLORIDE 101 mmol/L (98-107); CREATININE 1.42 mg/dL (0.55-1.30); GLUCOSE 158 mg/dL (70-99); POTASSIUM 4.3 mmol/L (3.5-5.1); SODIUM SERUM 133 mmol/L (136-145); UREA NITROGEN, BLOOD 30 mg/dL (8-21)
[2021-08-16 12:00] VITALS: BP_SYST 128
--- NOTE | 2021-08-16 12:13 | NUR ---
BLOOD SUGAR 208 MG/DL. REFUSED TO HAVE COVERAGE . EATING LUNCH
[2021-08-16] MEDS: ONDANSETRON HCL 4 MG/2 ML VIAL IVP PRN (14:32)
--- NOTE | 2021-08-16 14:35 | NUR ---
ZOFRAN 4 MG IV GIVEN COMPLAINED OF NAUSEA.
[2021-08-16 16:20] VITALS: BP_SYST 130
--- NOTE | 2021-08-16 18:00 | NUR ---
LATEST BS 143 MG/DL. NO COVERAGE GIVEN. MADE COMFORTABLE.
--- NOTE | 2021-08-16 19:00 | NUR ---
DR FOWLER SAID MIGHT BE DISCHARGED TOMORROW, IF URINE CULTURE COMES BACK. ENDORSED TO KIARA Barrera RN.
--- NOTE | 2021-08-16 19:53 | NUR ---
Patient awake ASSIST OUT OF BED TO Rest Room ambulates with assist SKIN DRY WARM FALL MEASURES IMPLEMENTED .
[2021-08-16 19:54] VITALS: BP_SYST 133
[2021-08-16] MEDS: GEMFIBROZIL 600 MG TABLET (LOPID) PO SCH (21:28)
[2021-08-16] MEDS: GABAPENTIN 300 MG CAPSULE PO SCH (21:28)
[2021-08-16] MEDS: INSULIN REGULAR, HUMAN 100 UNITS/ML, 10 ML VIAL (humuLIN R) SUBCUT PRN (21:30)
[2021-08-16] MEDS: LATANOPROST 2.5 ML DROPS (XALATAN) OP SCH (21:32)
--- NOTE | 2021-08-16 22:00 | NUR ---
Refuse INSULIN 2 UNITS BS 194 mg dl
--- NOTE | 2021-08-16 23:31 | NUR ---
ULTRAM 50 MG po administer for acute pain & helpful , patient Resting .
[2021-08-17 00:15] VITALS: BP_SYST 113
[2021-08-17] MEDS: traMADol HCL HCL 50 MG TABLET (ULTRAM) PO PRN (03:20)
--- NOTE | 2021-08-17 06:15 | NUR ---
REFUSE 2 UNITS OF INSULIN BS 163 mg dl
[2021-08-17] MEDS: LEVOTHYROXINE SODIUM 0.075 MG TABLET PO SCH (06:16)
[2021-08-17] MEDS: PIPERACILLIN/TAZO 3.375/DEX-IS 50 ML IV SCH ×2 (06:16→14:37)
[2021-08-17] MEDS: GLIMEPIRIDE 2 MG TABLET PO SCH ×2 (06:16→12:26)
[2021-08-17] MEDS: INSULIN REGULAR, HUMAN 100 UNITS/ML, 10 ML VIAL (humuLIN R) SUBCUT PRN (06:17)
[2021-08-17 06:41] LABS: BASOPHILS # (AUTO) 0.1 K/uL (0.0-0.2); EOSINOPHILS # (AUTO) 0.3 K/uL (0.0-0.4); HEMATOCRIT 41.9 % (36-48); HEMOGLOBIN 13.9 g/dL (12.0-16.0); LYMPHOCYTES % (AUTO) 18.4 % (20.5-51.5); MEAN CORPUSCULAR HEMOGLOBIN 30 pg (27-31); MEAN CORPUSCULAR HGB CONC 33 % (32-36); MEAN CORPUSCULAR VOLUME 90 fL (79.0-98.0); MONOCYTES % (AUTO) 9.4 % (1.7-9.3); NEUTROPHILS # (AUTO) 7.2 K/uL (1.8-7.7); NEUTROPHILS % (AUTO) 68.2 % (40.0-70.0); PLATELET COUNT (AUTO) 185 K/uL (130-430); RED BLOOD CELL COUNT(AUTO) 4.68 MIL/uL (4.2-6.2); RED CELL DISTRIBUTION WIDTH 14.7 % (9.0-15.0); WHITE BLOOD COUNT (AUTO) 10.6 K/uL (4.8-10.8)
[2021-08-17 06:48] LABS: ANION GAP 11 (5-15); CALCIUM 8.2 mg/dL (8.4-11.0); CHLORIDE 102 mmol/L (98-107); CREATININE 1.56 mg/dL (0.55-1.30); GLUCOSE 170 mg/dL (70-99); POTASSIUM 4.1 mmol/L (3.5-5.1); SODIUM SERUM 133 mmol/L (136-145); UREA NITROGEN, BLOOD 35 mg/dL (8-21)
[2021-08-17 07:55] VITALS: BP_SYST 126
--- NOTE | 2021-08-17 07:55 | NUR ---
INITIAL ROUNDS Received pt AAOx4, no s/s resp distress, no c/o pain or discomfort. Plan of care for the day reviewed with pt-pt verbalized her understanding. Pt hopes to be discharged home today. Pain management, disease process, skin and safety discussed-teach back done. Call light within reach.
[2021-08-17] MEDS: POLYETHYLENE GLYCOL 3350, 17 GM/ POWD.PACK PO SCH (09:00)
[2021-08-17] MEDS: ONDANSETRON HCL 4 MG/2 ML VIAL IVP PRN (09:14)
[2021-08-17] MEDS: LIDOCAINE PATCH 5% 1 EA TP SCH (09:17)
[2021-08-17] MEDS: PANTOPRAZOLE SODIUM 40 MG TAB PO SCH (09:18)
[2021-08-17] MEDS: DOCUSATE SODIUM 250 MG CAPSULE PO SCH (09:18)
[2021-08-17] MEDS: lisinopriL 20 MG TABLET PO SCH (09:18)
[2021-08-17] MEDS: ATORVASTATIN 10 MG TABLET PO SCH (09:18)
[2021-08-17] MEDS: amLODIPine BESYLATE 10 MG TABLET PO SCH (09:18)
--- NOTE | 2021-08-17 10:29 | NUR ---
Dietitian Recommendations *Recommend: Regular Low Carb 45gm Heart healthy diet. Please see Nutritional Assessment for details. DOYLE MATTA
--- NOTE | 2021-08-17 15:19 | NUR ---
CM: assessment for HH need: The pt lives alone but had caregiver 3xweek and as needed. The pt is independently ambulate twice around nursing station about 200 feet with FWW with PT, stable. She will be on PO abx. Explained to pt the duty of HH nurse for safety eval for possible high risk for fall. The declined the HH services, her caregiver will stay with her tonight and as need. Dr Rosangela ramirez.
[2021-08-17 15:39] VITALS: BP_SYST 135
[2021-08-17] MEDS ORDERED: CEPH250C PO (15:43)
[2021-08-17 16:03] VITALS: BP_SYST 135
--- NOTE | 2021-08-17 16:30 | NUR ---
DISCHARGE PATIENT Patient given medication reconciliation form and D/C instructions. Exit Care on Pyelonephritis and Keflex explained and provided. Patient verbalized her understanding. discussed with FWW for discharge to home. Patient in stable condition, ID band removed. IV catheter removed, intact and dressing applied, no active bleeding. Rx of Keflex given. Patient educated on pain management. All belongings sent with patient. Patient left floor via wheelchair to private vehicle in no distress.
== END 2021-08-17 16:30 | disposition home or self-care (01) | DRG 872 ==
LOC: SED 12:34 → SMU 17:33
PROVIDERS: ADMIT Internal Medicine; ATTEND Internal Medicine
DX: A41.9 Sepsis, unspecified organism (principal); N10 Acute pyelonephritis; Z68.41 Body mass index [BMI] 40.0-44.9, adult; K58.9 Irritable bowel syndrome, unspecified; K64.9 Unspecified hemorrhoids; E03.9 Hypothyroidism, unspecified; G89.29 Other chronic pain; E78.5 Hyperlipidemia, unspecified; E66.01 Morbid (severe) obesity due to excess calories; Z20.822 Contact with and (suspected) exposure to COVID-19; K59.00 Constipation, unspecified; E11.22 Type 2 diabetes mellitus with diabetic chronic kidney disease; I12.9 Hypertensive chronic kidney disease with stage 1 through stage 4 chronic kidney disease, or unspecified chronic kidney disease; N18.9 Chronic kidney disease, unspecified; Z95.5 Presence of coronary angioplasty implant and graft; Z87.440 Personal history of urinary (tract) infections; Z88.5 Allergy status to narcotic agent; Z79.899 Other long term (current) drug therapy; Z90.49 Acquired absence of other specified parts of digestive tract; E11.21 Type 2 diabetes mellitus with diabetic nephropathy
CPT/HCPCS: 36415; 74021; 74150-TC; 76376; 76700-TC; 80048; 80053; 81000; 82962; 83036; 83690; 85025; 87040-TC; 87086; 96365; 99285; J2405; J2543

== ENCOUNTER 2022-03-17 12:21 | Inpatient (IN) | payer OTHER, MEDICARE ==
[~2022-03-17] VITALS: Ht 165.1 cm; Wt 109.8 kg
[~2022-03-17 12:21] MED LIST changes: -AMLO5TAB4 PO; -BISA10SU77 RC; +CEPH250C PO; -CLOB50SO2 TP; +EMPA10TA PO; -GLU850 PO; -HYDR-4272 PO; -L.RH1CAP PO; -MOME45CR17 TP; -NADO20TA9 PO; +NOR10 PO; -ONDA4TAB5 PO; -TRAM50TA92 PO; -[UNRECOGNIZED DRUG - OTHER] VG; -nystatin TP
[2022-03-17 13:00] VITALS: BP_SYST 140
--- NOTE | 2022-03-17 13:00 | NUR ---
PT TRIAGED AND PLACED IN ED WAITING ROOM FOR AVAILABLE BED, MADE AWARE OF MSE NEEDS
--- NOTE | 2022-03-17 13:53 | NUR ---
Placed in room 2 . Placed on potline monitor, blood pressure machine and pulse oximeter. To gown for exam. Side rails up. Report given to MAGALI ROBLES.
[2022-03-17 14:00] LABS: BILIRUBIN,URINE NEGATIVE (NEGATIVE); BLOOD, URINE 3+ (NEGATIVE); COLOR,URINE YELLOW (YELLOW); GLUCOSE,URINE 3+ (NEGATIVE); KETONES,URINE NEGATIVE (NEGATIVE); LEUKOCYTE ESTERASE ,URINE 2+ (NEGATIVE); NITRITE, URINE NEGATIVE (NEGATIVE); PROTEIN URINE 1+ (NEGATIVE); UROBILINOGEN,URINE 0.2 (0.2-1.0)
[2022-03-17 14:03] LABS: CLARITY/URINE HAZY (CLEAR)
--- NOTE | 2022-03-17 14:05 | NUR ---
ED SIN AT BEDSIDE
[2022-03-17 14:16] LABS: BACTERIA,URINE MODERATE /HPF (None Seen); WBC,URINE 50-80 /HPF (0-3)
[2022-03-17] MEDS ORDERED: NACL 0.9% 1,000 ML IV ONE (14:30)
[2022-03-17 15:14] LABS: HEMATOCRIT 42.2 % (36-48); HEMOGLOBIN 14.3 g/dL (12.0-16.0); MEAN CORPUSCULAR HEMOGLOBIN 28 pg (27-31); MEAN CORPUSCULAR HGB CONC 34 % (32-36); MEAN CORPUSCULAR VOLUME 84 fL (79.0-98.0); PLATELET COUNT (AUTO) 308 K/uL (130-430); RED BLOOD CELL COUNT(AUTO) 5.05 MIL/uL (4.2-6.2); RED CELL DISTRIBUTION WIDTH 14.9 % (9.0-15.0); WHITE BLOOD COUNT (AUTO) 9.5 K/uL (4.8-10.8)
[2022-03-17 15:16] LABS: ANION GAP 10 (5-15); CALCIUM 9.6 mg/dL (8.4-11.0); CHLORIDE 104 mmol/L (98-107); CREATININE 1.49 mg/dL (0.55-1.30); GLUCOSE 193 mg/dL (70-99); SODIUM SERUM 138 mmol/L (136-145); UREA NITROGEN, BLOOD 33 mg/dL (8-21)
[2022-03-17 15:20] LABS: ALANINE AMINOTRANSFERASE 55 U/L (12-78); ALBUMIN 3.4 g/dL (3.4-4.8); ASPARTATE AMINOTRANSFERASE 32 U/L (10-37); LIPASE 78 U/L (73-393); TOTAL BILIRUBIN 0.5 mg/dL (0.0-1.0)
[2022-03-17] MEDS ORDERED: PIPERACILLIN/TAZO 3.375 GM in NS 50 ML IV ONE (15:45)
--- NOTE | 2022-03-17 16:39 | NUR ---
Admit bed requested Patient will be admitted to care of . Admitted to MED/SURG unit. Diagnosis PYELONEPHRITIS Inpatient (Yes or No) Y Observation (Yes or No) N Orientation concerns or request close to nursing station (Yes or No) N Covid Status N On vent or bipap N Isolation requirements N Needs a sitter N From Home (Yes or if No enter name of facility) Y Requires Dialysis (Yes or No) N Med Rec Completed (Yes of No) Y
[2022-03-17] MEDS ORDERED: PIPERACILLIN/TAZOBACTAM 3.375 GM/VIAL (ZOSYN) IV ONE (16:49)
[2022-03-17] MEDS ORDERED: ACETAMINOPHEN 500 MG TABLET PO ONE (17:15)
[2022-03-17] MEDS ORDERED: LIDOCAINE PATCH 5% 1 EA TP ONE (17:15)
--- NOTE | 2022-03-17 18:30 | NUR ---
PROVIDED PATIENT WITH [facility] DINNER. INDEPENDENTLY EATING.
[2022-03-17] MEDS ORDERED: LORazepam 1 MG TABLET PO PRN (19:00)
[2022-03-17] MEDS ORDERED: DEXTROSE 50% JECT 50 ML DISP.SYRIN IVP PRN (19:00)
[2022-03-17] MEDS ORDERED: ACETAMINOPHEN 325 MG TABLET PO PRN (19:00)
[2022-03-17 19:07] LABS: BAND % (MANUAL) 6 % (0-6)
[2022-03-17 19:08] LABS: BASOPHILS % (MANUAL) 0 % (0-2); EOSINOPHILS % (MANUAL) 3 % (0-7); LYMPHOCYTES % (MANUAL) 12 % (20-46); MONOCYTES % (MANUAL) 7 % (0-11)
[2022-03-17] MEDS ORDERED: FLUCONAZOLE 100 MG TABLET (DIFLUCAN) PO ONE (19:15)
[2022-03-17] MEDS ORDERED: FLUCONAZOLE 200 MG TABLET (DIFLUCAN) PO ONE (19:15)
--- NOTE | 2022-03-17 19:30 | NUR ---
REPORT TO RUSS DE LOS SANTOS PT TO BE TRANSFERED TO BED 102B
[2022-03-17 19:55] VITALS: BP_SYST 135
[2022-03-17] MEDS: CLOTRIMAZOLE/BETAMET DIPROP 15 GM TUBE TP SCH (21:00)
[2022-03-17] MEDS ORDERED: GLIMEPIRIDE 2 MG TABLET PO SCH (21:00)
[2022-03-17] MEDS: 0.45% NACL 1,000 ML IV SCH (21:15)
[2022-03-17] MEDS: GEMFIBROZIL 600 MG TABLET (LOPID) PO SCH (21:15)
[2022-03-17] MEDS: ATORVASTATIN 10 MG TABLET PO SCH (21:16)
[2022-03-17] MEDS: LACTOBACILLUS RHAMNOSUS GG 1 CAP CAPSULE PO SCH (21:16)
[2022-03-17] MEDS: GABAPENTIN 300 MG CAPSULE PO SCH (21:16)
[2022-03-17] MEDS: HEPARIN SODIUM,PORCINE 5,000 UNITS/ML VIAL SUBCUT SCH (21:18)
[2022-03-17] MEDS: INSULIN REGULAR, HUMAN 100 UNITS/ML, 10 ML VIAL (humuLIN R) SUBCUT PRN (21:20)
[2022-03-18] MEDS ORDERED: PIPERACILLIN/TAZOBACTAM 3.375 GM/VIAL (ZOSYN) IV ONE (00:41)
[2022-03-18] MEDS: PIPERACILLIN/TAZO 3.375/DEX-IS 50 ML IV SCH ×4 (00:53→18:55)
[2022-03-18] MEDS: 0.45% NACL 1,000 ML IV SCH ×2 (05:00→16:00)
[2022-03-18] MEDS: INSULIN REGULAR, HUMAN 100 UNITS/ML, 10 ML VIAL (humuLIN R) SUBCUT PRN ×3 (06:13→22:39)
[2022-03-18] MEDS: LEVOTHYROXINE SODIUM 0.075 MG TABLET PO SCH (06:18)
[2022-03-18 07:03] LABS: BASOPHILS # (AUTO) 0.1 K/uL (0.0-0.2); BASOPHILS % (AUTO) 1.1 % (0.0-2.0); EOSINOPHILS # (AUTO) 0.3 K/uL (0.0-0.4); EOSINOPHILS % (AUTO) 3.8 % (0.0-4.0); HEMOGLOBIN 13.2 g/dL (12.0-16.0); LYMPHOCYTES # (AUTO) 1.5 K/uL (1.0-5.5); LYMPHOCYTES % (AUTO) 21.9 % (20.5-51.5); MEAN CORPUSCULAR HEMOGLOBIN 28 pg (27-31); MEAN CORPUSCULAR HGB CONC 34 % (32-36); MEAN CORPUSCULAR VOLUME 84 fL (79.0-98.0); MONOCYTES # (AUTO) 0.9 K/uL (0.0-1.0); MONOCYTES % (AUTO) 12.3 % (1.7-9.3); NEUTROPHILS # (AUTO) 4.3 K/uL (1.8-7.7); NEUTROPHILS % (AUTO) 60.9 % (40.0-70.0); PLATELET COUNT (AUTO) 234 K/uL (130-430); RED BLOOD CELL COUNT(AUTO) 4.64 MIL/uL (4.2-6.2)
[2022-03-18 08:00] VITALS: BP_SYST 128; BP_SYST 134
[2022-03-18 08:03] LABS: ALANINE AMINOTRANSFERASE 38 U/L (12-78); ALBUMIN 2.7 g/dL (3.4-4.8); ANION GAP 11 (5-15); ASPARTATE AMINOTRANSFERASE 34 U/L (10-37); CALCIUM 8.5 mg/dL (8.4-11.0); CHLORIDE 105 mmol/L (98-107); GLUCOSE 189 mg/dL (70-99); POTASSIUM 4.3 mmol/L (3.5-5.1); SODIUM SERUM 136 mmol/L (136-145); TOTAL BILIRUBIN 0.5 mg/dL (0.0-1.0); UREA NITROGEN, BLOOD 33 mg/dL (8-21)
[2022-03-18] MEDS: PANTOPRAZOLE SODIUM 40 MG TAB PO SCH (09:00)
[2022-03-18] MEDS: HEPARIN SODIUM,PORCINE 5,000 UNITS/ML VIAL SUBCUT SCH ×2 (09:00→21:00)
[2022-03-18] MEDS: LATANOPROST 2.5 ML DROPS (XALATAN) OP SCH (09:45)
[2022-03-18] MEDS: ASPIRIN 81 MG TABLET(ECOTRIN) PO SCH (10:37)
[2022-03-18] MEDS: LACTOBACILLUS RHAMNOSUS GG 1 CAP CAPSULE PO SCH ×2 (10:38→22:36)
[2022-03-18] MEDS: amLODIPine BESYLATE 10 MG TABLET PO SCH (10:39)
[2022-03-18] MEDS: FLUCONAZOLE 100 MG TABLET (DIFLUCAN) PO SCH (10:39)
[2022-03-18] MEDS: lisinopriL 20 MG TABLET PO SCH (10:39)
[2022-03-18] MEDS: CLOTRIMAZOLE/BETAMET DIPROP 15 GM TUBE TP SCH ×2 (10:40→22:37)
[2022-03-18 12:00] VITALS: BP_SYST 128; BP_SYST 142
[2022-03-18 16:00] VITALS: BP_SYST 128
--- NOTE | 2022-03-18 16:57 | NUR ---
ATTENDING MD DR FOWLER WAS CALLED, RE: MEDICATIONS FOR CONSTIPATION, NAUSEA, BACK PAIN (8 OUT OF 10). SPOKE TO KARLEY.
[2022-03-18] MEDS ORDERED: BISACODYL 10 MG/SUPPOSITORY RC PRN (17:15)
[2022-03-18] MEDS ORDERED: KETOROLAC TROMETHAMINE 15 MG VIAL IVP PRN (17:15)
[2022-03-18] MEDS ORDERED: ONDANSETRON HCL 4 MG/2 ML VIAL IVP PRN (17:15)
[2022-03-18] MEDS ORDERED: PHENYLEPH/MINERAL OIL/PETROLAT 57 GM OINT.APPL TP PRN (17:15)
[2022-03-18] MEDS ORDERED: ONDANSETRON HCL 4 MG/2 ML VIAL ONE (17:19)
[2022-03-18] MEDS ORDERED: KETOROLAC TROMETHAMINE 15 MG VIAL ONE (17:19)
[2022-03-18] MEDS ORDERED: DOCUSATE SODIUM 250 MG CAPSULE PO ONE (17:30)
[2022-03-18 18:00] VITALS: BP_SYST 144
[2022-03-18 20:35] VITALS: BP_SYST 130
[2022-03-18] MEDS: GEMFIBROZIL 600 MG TABLET (LOPID) PO SCH (22:35)
[2022-03-18] MEDS: SENNOSIDES/DOCUSATE SODIUM 1 TAB TABLET(SENOKOT-S) PO SCH (22:36)
[2022-03-18] MEDS: ATORVASTATIN 10 MG TABLET PO SCH (22:36)
[2022-03-18] MEDS: DOCUSATE SODIUM 250 MG CAPSULE PO SCH (22:36)
[2022-03-18] MEDS: GABAPENTIN 300 MG CAPSULE PO SCH (22:36)
[2022-03-19] MEDS: PIPERACILLIN/TAZO 3.375/DEX-IS 50 ML IV SCH ×4 (00:26→19:17)
[2022-03-19 00:30] VITALS: BP_SYST 121
--- NOTE | 2022-03-19 02:30 | NUR ---
Bathroom Assisted pt to bathroom, pt states she had a BM. Gown and chucks changed. IVF infusing at ordered rate. Call light within reach. To monitor.
[2022-03-19] MEDS: 0.45% NACL 1,000 ML IV SCH ×2 (05:34→12:00)
--- NOTE | 2022-03-19 05:40 | NUR ---
Closing notes Pt asleep, easily awakens no s/s distress, no c/o pain. IV antibiotic/IVF administered at ordered rate left AC. Call light within reach. Bed low, locked, siderails up x2. To endorse to AM nurse.
[2022-03-19] MEDS: INSULIN REGULAR, HUMAN 100 UNITS/ML, 10 ML VIAL (humuLIN R) SUBCUT PRN (06:27)
[2022-03-19] MEDS: GLIMEPIRIDE 2 MG TABLET PO SCH (06:31)
[2022-03-19] MEDS: LEVOTHYROXINE SODIUM 0.075 MG TABLET PO SCH (06:33)
[2022-03-19 07:51] LABS: ANION GAP 9 (5-15); CALCIUM 8.3 mg/dL (8.4-11.0); CHLORIDE 104 mmol/L (98-107); CREATININE 1.92 mg/dL (0.55-1.30); GLUCOSE 179 mg/dL (70-99); POTASSIUM 4.7 mmol/L (3.5-5.1); SODIUM SERUM 134 mmol/L (136-145); UREA NITROGEN, BLOOD 35 mg/dL (8-21)
[2022-03-19 07:58] LABS: EOSINOPHILS # (AUTO) 0.2 K/uL (0.0-0.4); EOSINOPHILS % (AUTO) 3.2 % (0.0-4.0); HEMATOCRIT 37.1 % (36-48); HEMOGLOBIN 12.5 g/dL (12.0-16.0); LYMPHOCYTES # (AUTO) 0.9 K/uL (1.0-5.5); LYMPHOCYTES % (AUTO) 12.8 % (20.5-51.5); MEAN CORPUSCULAR HEMOGLOBIN 28 pg (27-31); MEAN CORPUSCULAR HGB CONC 34 % (32-36); MEAN CORPUSCULAR VOLUME 84 fL (79.0-98.0); MONOCYTES % (AUTO) 15.8 % (1.7-9.3); PLATELET COUNT (AUTO) 205 K/uL (130-430); RED BLOOD CELL COUNT(AUTO) 4.41 MIL/uL (4.2-6.2); RED CELL DISTRIBUTION WIDTH 14.9 % (9.0-15.0); WHITE BLOOD COUNT (AUTO) 7.4 K/uL (4.8-10.8)
[2022-03-19] MEDS: HEPARIN SODIUM,PORCINE 5,000 UNITS/ML VIAL SUBCUT SCH ×2 (09:00→21:00)
[2022-03-19] MEDS: lisinopriL 20 MG TABLET PO SCH (09:00)
[2022-03-19] MEDS: LACTOBACILLUS RHAMNOSUS GG 1 CAP CAPSULE PO SCH ×2 (09:27→21:07)
[2022-03-19] MEDS: DOCUSATE SODIUM 250 MG CAPSULE PO SCH ×2 (09:28→21:07)
[2022-03-19] MEDS: PANTOPRAZOLE SODIUM 40 MG TAB PO SCH (09:29)
[2022-03-19] MEDS: amLODIPine BESYLATE 10 MG TABLET PO SCH (09:29)
[2022-03-19] MEDS: FLUCONAZOLE 100 MG TABLET (DIFLUCAN) PO SCH (09:29)
[2022-03-19] MEDS: ASPIRIN 81 MG TABLET(ECOTRIN) PO SCH (09:29)
[2022-03-19] MEDS: LATANOPROST 2.5 ML DROPS (XALATAN) OP SCH (09:30)
[2022-03-19] MEDS: CLOTRIMAZOLE/BETAMET DIPROP 15 GM TUBE TP SCH ×2 (09:32→21:08)
[2022-03-19 10:21] LABS: BASOPHILS % (AUTO) 0.3 % (0.0-2.0)
[2022-03-19 10:22] LABS: MONOCYTES # (AUTO) 1.3 K/uL (0.0-1.0); NEUTROPHILS % (AUTO) 70.9 % (40.0-70.0)
--- NOTE | 2022-03-19 12:11 | NUR ---
DISCHARGE PLANNING Discussed dc planing with Dr Adames in nsg station. Plan for dc home, not ready for dc today due to pending urine culture. Final dc planning pending urine cx results.
[2022-03-19] MEDS ORDERED: LORATADINE 10 MG TABLET PO ONE (15:30)
--- NOTE | 2022-03-19 16:55 | NUR ---
Dietitian Recommendations * Continue [facility] diet * Consider Glucerna BID if PO intakes do not improve LP, RD Please refer to Nutrition Assessment for details. Addendum: 03/19/22 at [address] Amended: Links added.
[2022-03-19 20:00] VITALS: BP_SYST 139
[2022-03-19] MEDS: SENNOSIDES/DOCUSATE SODIUM 1 TAB TABLET(SENOKOT-S) PO SCH ×2 (21:00→21:07)
[2022-03-19] MEDS: GABAPENTIN 300 MG CAPSULE PO SCH (21:07)
[2022-03-19] MEDS: ATORVASTATIN 10 MG TABLET PO SCH (21:07)
[2022-03-19] MEDS: GEMFIBROZIL 600 MG TABLET (LOPID) PO SCH (21:07)
[2022-03-19] MEDS: guaiFENesin/DEXTROMETHORPHAN 10 ML UDC PO PRN (21:07)
--- NOTE | 2022-03-19 22:30 | NUR ---
IV restart IV L. AC leaking. Dc'd catheter tip intact. Restarted L. FA 22G x2 attempts. Good blood return. Pt tolerated well. To monitor.
[2022-03-20] MEDS: PIPERACILLIN/TAZO 3.375/DEX-IS 50 ML IV SCH ×2 (00:15→06:26)
[2022-03-20 00:23] VITALS: BP_SYST 122
[2022-03-20] MEDS: guaiFENesin/DEXTROMETHORPHAN 10 ML UDC PO PRN ×2 (02:33→09:06)
--- NOTE | 2022-03-20 02:33 | NUR ---
Rounds Pt alert, awake, coughing. Medicated with Robitussin cough syrup as needed. Pt states she woke up in sweat. No fever noted. Removed some blankets and pt's gown changed. All needs met at this time. To monitor.
[2022-03-20] MEDS: GLIMEPIRIDE 2 MG TABLET PO SCH (06:26)
[2022-03-20] MEDS: LEVOTHYROXINE SODIUM 0.075 MG TABLET PO SCH (06:26)
--- NOTE | 2022-03-20 06:32 | NUR ---
Closing notes Pt AAOx4, no s/s distress. Blood sugar checked 112. IV antibiotic administered at ordered rate L. FA 22 clear and patent. Call light within reach. Safety maintained. To endorse to AM nurse.
[2022-03-20 08:00] VITALS: BP_SYST 122
[2022-03-20 08:05] LABS: BASOPHILS # (AUTO) 0.1 K/uL (0.0-0.2); BASOPHILS % (AUTO) 1.8 % (0.0-2.0); EOSINOPHILS # (AUTO) 0.2 K/uL (0.0-0.4); EOSINOPHILS % (AUTO) 3.3 % (0.0-4.0); HEMATOCRIT 39.6 % (36-48); LYMPHOCYTES # (AUTO) 1.3 K/uL (1.0-5.5); LYMPHOCYTES % (AUTO) 20.4 % (20.5-51.5); MEAN CORPUSCULAR HEMOGLOBIN 28 pg (27-31); MEAN CORPUSCULAR HGB CONC 33 % (32-36); MONOCYTES % (AUTO) 14.6 % (1.7-9.3); NEUTROPHILS # (AUTO) 3.9 K/uL (1.8-7.7); NEUTROPHILS % (AUTO) 59.9 % (40.0-70.0); PLATELET COUNT (AUTO) 225 K/uL (130-430); RED BLOOD CELL COUNT(AUTO) 4.62 MIL/uL (4.2-6.2); RED CELL DISTRIBUTION WIDTH 15.1 % (9.0-15.0); WHITE BLOOD COUNT (AUTO) 6.6 K/uL (4.8-10.8)
[2022-03-20 08:38] LABS: ANION GAP 11 (5-15); CALCIUM 8.2 mg/dL (8.4-11.0); CHLORIDE 103 mmol/L (98-107); CREATININE 1.83 mg/dL (0.55-1.30); GLUCOSE 108 mg/dL (70-99); POTASSIUM 3.8 mmol/L (3.5-5.1); SODIUM SERUM 136 mmol/L (136-145); UREA NITROGEN, BLOOD 32 mg/dL (8-21)
[2022-03-20] MEDS ORDERED: LORATADINE 10 MG TABLET PO SCH (09:00)
[2022-03-20] MEDS: LACTOBACILLUS RHAMNOSUS GG 1 CAP CAPSULE PO SCH (09:05)
[2022-03-20] MEDS: FLUCONAZOLE 100 MG TABLET (DIFLUCAN) PO SCH (09:05)
[2022-03-20] MEDS: ASPIRIN 81 MG TABLET(ECOTRIN) PO SCH (09:05)
[2022-03-20] MEDS: DOCUSATE SODIUM 250 MG CAPSULE PO SCH (09:05)
[2022-03-20] MEDS: amLODIPine BESYLATE 10 MG TABLET PO SCH (09:05)
[2022-03-20] MEDS: PANTOPRAZOLE SODIUM 40 MG TAB PO SCH (09:05)
[2022-03-20] MEDS: CLOTRIMAZOLE/BETAMET DIPROP 15 GM TUBE TP SCH (09:10)
[2022-03-20] MEDS: lisinopriL 20 MG TABLET PO SCH (09:10)
[2022-03-20] MEDS: HEPARIN SODIUM,PORCINE 5,000 UNITS/ML VIAL SUBCUT SCH (09:35)
[2022-03-20] MEDS: LATANOPROST 2.5 ML DROPS (XALATAN) OP SCH (09:36)
[2022-03-20 10:40] LABS: MEAN CORPUSCULAR VOLUME 86 fL (79.0-98.0)
[2022-03-20 12:00] VITALS: BP_SYST 121
[2022-03-20] MEDS ORDERED: DOCU250C71 PO (12:22)
[2022-03-20] MEDS ORDERED: CLOT15CR5 TP (12:22)
[2022-03-20] MEDS ORDERED: DIF100 PO (12:22)
[2022-03-20] MEDS ORDERED: Aspirin Ec PO (12:22)
[2022-03-20] MEDS ORDERED: AUG875 PO (12:24)
[2022-03-20] MEDS ORDERED: LACT1TAB14 PO (12:25)
[2022-03-20 13:53] VITALS: BP_SYST 122
--- NOTE | 2022-03-20 15:18 | NUR ---
Obtained order by DR Adames regarding discharge home. REviewed discharge instructions with pt and pt verbalized understanding. Charge nurse Zarina and case maker aware of d/c. Prescription of Augmentin and Diflucan and pt verbalized understanding. D/c'd IV site per md order. All belongings sent with pt including wallet, purse and cellphone with devulcanizer charger. F/U appt to be arranged by patient as outpt and f/u with urologist. Pt verbalized understanding. Escorted out via wheelchair.
== END 2022-03-20 14:30 | disposition home or self-care (01) | DRG 690 ==
LOC: SED 12:21 → SMU 16:35
PROVIDERS: ADMIT Internal Medicine; ATTEND Internal Medicine
DX: N10 Acute pyelonephritis (principal); Z68.41 Body mass index [BMI] 40.0-44.9, adult; E66.01 Morbid (severe) obesity due to excess calories; Z20.822 Contact with and (suspected) exposure to COVID-19; N30.90 Cystitis, unspecified without hematuria; N18.30 Chronic kidney disease, stage 3 unspecified; G89.29 Other chronic pain; M54.9 Dorsalgia, unspecified; E11.22 Type 2 diabetes mellitus with diabetic chronic kidney disease; E11.21 Type 2 diabetes mellitus with diabetic nephropathy; E03.9 Hypothyroidism, unspecified; E78.5 Hyperlipidemia, unspecified; I25.10 Atherosclerotic heart disease of native coronary artery without angina pectoris; B37.3 Candidiasis of vulva and vagina; M47.817 Spondylosis without myelopathy or radiculopathy, lumbosacral region; K59.00 Constipation, unspecified; K64.9 Unspecified hemorrhoids; N28.1 Cyst of kidney, acquired; N17.9 Acute kidney failure, unspecified; E11.65 Type 2 diabetes mellitus with hyperglycemia; I12.9 Hypertensive chronic kidney disease with stage 1 through stage 4 chronic kidney disease, or unspecified chronic kidney disease; E78.00 Pure hypercholesterolemia, unspecified; Z88.5 Allergy status to narcotic agent; Z79.899 Other long term (current) drug therapy; Z95.5 Presence of coronary angioplasty implant and graft
CPT/HCPCS: 36415; 71046-TC; 76376; 80048; 80053; 81000; 82962; 83036; 83690; 83880; 85007; 85025; 85027; 87040; 87086; 96374; 99285; J1644; J1815; J1885; J2405; J2543; J7030

== ENCOUNTER 2022-04-13 08:30 | Inpatient (IN) | payer OTHER, MEDICARE ==
[~2022-04-13] VITALS: Ht 162.6 cm; Wt 90.7 kg
[~2022-04-13 08:30] MED LIST changes: +AUG875 PO; +Aspirin Ec PO; -CEPH250C PO; +CLOT15CR5 TP; +DIF100 PO; +DOCU250C71 PO; -GLIM4TAB PO; +LACT1TAB14 PO
[2022-04-13 08:37] VITALS: BP_SYST 136
--- NOTE | 2022-04-13 08:37 | NUR ---
ERMD AT BEDSIDE AT THIS TIME
--- NOTE | 2022-04-13 08:37 | NUR ---
Patient to ER bed 2 to gown for evaluation. Side rails up. Report given to Jaison DE LOS SANTOS.
[2022-04-13 09:02] LABS: BASOPHILS # (AUTO) 0.1 K/uL (0.0-0.2); BASOPHILS % (AUTO) 1.4 % (0.0-2.0); EOSINOPHILS # (AUTO) 0.2 K/uL (0.0-0.4); EOSINOPHILS % (AUTO) 2.3 % (0.0-4.0); HEMATOCRIT 41.8 % (36-48); LYMPHOCYTES # (AUTO) 1.1 K/uL (1.0-5.5); LYMPHOCYTES % (AUTO) 12.8 % (20.5-51.5); MEAN CORPUSCULAR HEMOGLOBIN 28 pg (27-31); MEAN CORPUSCULAR HGB CONC 34 % (32-36); MEAN CORPUSCULAR VOLUME 84 fL (79.0-98.0); MONOCYTES # (AUTO) 0.7 K/uL (0.0-1.0); NEUTROPHILS # (AUTO) 6.7 K/uL (1.8-7.7); NEUTROPHILS % (AUTO) 75.5 % (40.0-70.0); PLATELET COUNT (AUTO) 235 K/uL (130-430); RED CELL DISTRIBUTION WIDTH 14.8 % (9.0-15.0); WHITE BLOOD COUNT (AUTO) 8.8 K/uL (4.8-10.8)
[2022-04-13 09:49] LABS: ANION GAP 13 (5-15); CALCIUM 9.1 mg/dL (8.4-11.0); CHLORIDE 100 mmol/L (98-107); CREATININE 1.57 mg/dL (0.55-1.30); GLUCOSE 248 mg/dL (70-99); POTASSIUM 4.7 mmol/L (3.5-5.1); SODIUM SERUM 133 mmol/L (136-145); UREA NITROGEN, BLOOD 32 mg/dL (8-21)
[2022-04-13 09:55] LABS: ALANINE AMINOTRANSFERASE 43 U/L (12-78); ALBUMIN 3.3 g/dL (3.4-4.8); AMYLASE 44 U/L (0-100); ASPARTATE AMINOTRANSFERASE 46 U/L (10-37); LIPASE 120 U/L (73-393); TOTAL BILIRUBIN 0.6 mg/dL (0.0-1.0)
[2022-04-13 10:03] LABS: C-REACTIVE PROTEIN QUANT < 0.2 mg/dL (0-0.5)
[2022-04-13 10:48] LABS: BILIRUBIN,URINE NEGATIVE (NEGATIVE); BLOOD, URINE 3+ (NEGATIVE); COLOR,URINE YELLOW (YELLOW); GLUCOSE,URINE TRACE (NEGATIVE); KETONES,URINE NEGATIVE (NEGATIVE); LEUKOCYTE ESTERASE ,URINE 2+ (NEGATIVE); NITRITE, URINE NEGATIVE (NEGATIVE); PROTEIN URINE 1+ (NEGATIVE); UROBILINOGEN,URINE 0.2 (0.2-1.0)
[2022-04-13 10:50] LABS: CLARITY/URINE HAZY (CLEAR)
[2022-04-13] MEDS ORDERED: NITR-85 PO (11:03)
[2022-04-13 11:05] LABS: BACTERIA,URINE RARE /HPF (None Seen); RBC,URINE 20-50 /HPF (0-3)
[2022-04-13] MEDS ORDERED: cefTRIAXone 1 GM in D5W 50 ML IV ONE (11:30)
[2022-04-13] MEDS ORDERED: ONDANSETRON 4 MG ODT TAB PO ONE (11:30)
--- NOTE | 2022-04-13 11:32 | NUR ---
Covid swab done and sent to lab.
--- NOTE | 2022-04-13 11:35 | NUR ---
Personal Belonging List Completed
[2022-04-13] MEDS ORDERED: NADO20TA9 PO (11:46)
[2022-04-13] MEDS ORDERED: [UNRECOGNIZED DRUG - CODE] (11:46)
[2022-04-13] MEDS ORDERED: NADO40TA PO (11:46)
[2022-04-13] MEDS ORDERED: LINA145C PO (11:46)
[2022-04-13] MEDS ORDERED: SITA100T11 PO (11:46)
[2022-04-13] MEDS ORDERED: SEMA3TAB4 PO (11:46)
[2022-04-13] MEDS ORDERED: GLIM4TAB PO (11:46)
--- NOTE | 2022-04-13 11:46 | NUR ---
Medication reconciliation completed with information provided by pt. Any prior medication reconciliation on file was reviewed and corrected.
[2022-04-13] MEDS ORDERED: cefTRIAXone 1 GM VIAL ONE (12:23)
--- NOTE | 2022-04-13 12:57 | NUR ---
Admit bed requested Patient will be admitted to care of . Admitted to TELEMETRY unit. Diagnosis COMPLICATED URINARY TRACT INFECTION Inpatient (Yes or No) YES Observation (Yes or No) NO Orientation concerns or request close to nursing station (Yes or No) NO Covid Status NEG On vent or bipap NO Isolation requirements NO Needs a sitter NO From Home (Yes or if No enter name of facility) HOME Requires Dialysis (Yes or No) NO Med Rec Completed (Yes of No)PENDING Addendum: 04/13/22 at 1308 by ANDREY ADMIT TO MED/SURG.
[2022-04-13] MEDS ORDERED: DEXTROSE 50% JECT 50 ML DISP.SYRIN IVP PRN (13:00)
[2022-04-13] MEDS ORDERED: INSULIN REGULAR, HUMAN 100 UNITS/ML, 10 ML VIAL (humuLIN R) SUBCUT PRN (13:00)
--- NOTE | 2022-04-13 13:08 | NUR ---
FOOD TRAY GIVEN
[2022-04-13] MEDS ORDERED: NADOLOL 20 MG TABLET(CORGARD) PO SCH (15:00)
[2022-04-13] MEDS ORDERED: CEFEPIME 1 GM in D5W 50 ML IV ONE (15:00)
[2022-04-13 15:02] VITALS: BP_SYST 153
[2022-04-13 15:05] VITALS: BP_SYST 153
--- NOTE | 2022-04-13 15:05 | NUR ---
Admission Note Received patient from ER with diagnosis of Abd pain, Complicated UTI. Initial Plan of Care discussed-patient verbalized her understanding. Oriented to room, call light, pain management and safety. Call light within reach.
--- NOTE | 2022-04-13 15:08 | NUR ---
CONSULTATION PAGED/CALLED Reason for Consultation: []Hematuria/Cystitis Person Who was Notified: [][place]os Consulting Physician: [] Berny Russo Despatch Clerk Specialty: [] Urology Ordering Physician: []Dr. Adames
[2022-04-13] MEDS ORDERED: ACETAMINOPHEN 325 MG TABLET ONE (17:13)
[2022-04-13] MEDS: NACL 0.9% 1,000 ML IV SCH (17:20)
[2022-04-13] MEDS ORDERED: ONDANSETRON HCL 4 MG/2 ML VIAL ONE (17:51)
[2022-04-13] MEDS: GLIMEPIRIDE 2 MG TABLET PO SCH (18:35)
--- NOTE | 2022-04-13 19:30 | NUR ---
CLOSING NOTE Pt sitting up in bed eating her dinner with no further c/o pain or discomfort. No s/s resp distress. IVF infusing well at ordered rate with no s/s infiltration to site. All precautions remain in place, Call light within reach
[2022-04-13 20:00] VITALS: BP_SYST 116
[2022-04-13] MEDS ORDERED: PRAVASTATIN SODIUM 20 MG TABLET (PRAVACHOL) PO SCH (21:00)
[2022-04-13] MEDS ORDERED: CLOTRIMAZOLE/BETAMET DIPROP 15 GM TUBE TP SCH (21:00)
[2022-04-13] MEDS ORDERED: NON-FORMULARY MEDICATION (Lactobacillus Acidophilus (Acidophilus) 1 TAB) PO SCH (21:00)
[2022-04-13] MEDS: GABAPENTIN 300 MG CAPSULE PO SCH (21:06)
[2022-04-13] MEDS: CEFEPIME 1 GM in D5W 50 ML IV SCH (21:06)
[2022-04-13] MEDS: LACTOBACILLUS RHAMNOSUS GG 1 CAP CAPSULE PO SCH (21:06)
[2022-04-13] MEDS: ATORVASTATIN 10 MG TABLET PO SCH (21:07)
[2022-04-13] MEDS: METOPROLOL TARTRATE 25 MG TABLET PO SCH (21:08)
[2022-04-13] MEDS: GEMFIBROZIL 600 MG TABLET (LOPID) PO SCH (21:09)
[2022-04-13] MEDS: DOCUSATE SODIUM 250 MG CAPSULE PO SCH (21:09)
[2022-04-13] MEDS: ACETAMINOPHEN 325 MG TABLET PO PRN (21:14)
--- NOTE | 2022-04-13 22:45 | NUR ---
OPENING NOTES: Patient received from AM shift during change of shift. Patient is AA&Ox4 able to make needs known, no s/s of distress is reported. Patient describes some back pain and PRN was administered as requested. Patient received all evening medications and tolerated them well. Patient is ambulatory and is able to use BSC. Patient is now resting. Safety measures have been placed and patient is able to use the call light. Will resume care and continue to monitor throughout the shift.
[2022-04-14] VITALS: BP_SYST 116
[2022-04-14] MEDS: ACETAMINOPHEN 325 MG TABLET PO PRN ×2 (03:41→14:42)
[2022-04-14] MEDS: NACL 0.9% 1,000 ML IV SCH ×3 (03:43→16:13)
[2022-04-14 05:59] LABS: BASOPHILS # (AUTO) 0.1 K/uL (0.0-0.2); BASOPHILS % (AUTO) 1.2 % (0.0-2.0); EOSINOPHILS # (AUTO) 0.3 K/uL (0.0-0.4); EOSINOPHILS % (AUTO) 3.7 % (0.0-4.0); HEMATOCRIT 39.3 % (36-48); HEMOGLOBIN 13.2 g/dL (12.0-16.0); LYMPHOCYTES # (AUTO) 1.9 K/uL (1.0-5.5); LYMPHOCYTES % (AUTO) 21.6 % (20.5-51.5); MEAN CORPUSCULAR HEMOGLOBIN 28 pg (27-31); MEAN CORPUSCULAR HGB CONC 34 % (32-36); MEAN CORPUSCULAR VOLUME 84 fL (79.0-98.0); MONOCYTES # (AUTO) 1.1 K/uL (0.0-1.0); MONOCYTES % (AUTO) 12.6 % (1.7-9.3); NEUTROPHILS # (AUTO) 5.3 K/uL (1.8-7.7); NEUTROPHILS % (AUTO) 60.9 % (40.0-70.0); PLATELET COUNT (AUTO) 197 K/uL (130-430); RED BLOOD CELL COUNT(AUTO) 4.68 MIL/uL (4.2-6.2); RED CELL DISTRIBUTION WIDTH 14.9 % (9.0-15.0); WHITE BLOOD COUNT (AUTO) 8.7 K/uL (4.8-10.8)
[2022-04-14] MEDS: LEVOTHYROXINE SODIUM 0.075 MG TABLET PO SCH (06:21)
[2022-04-14] MEDS: ONDANSETRON HCL 4 MG/2 ML VIAL IVP PRN ×2 (06:25→12:03)
[2022-04-14 06:38] LABS: ALANINE AMINOTRANSFERASE 42 U/L (12-78); ANION GAP 11 (5-15); ASPARTATE AMINOTRANSFERASE 44 U/L (10-37); CHLORIDE 103 mmol/L (98-107); CREATININE 1.77 mg/dL (0.55-1.30); GLUCOSE 111 mg/dL (70-99); PHOSPHORUS 5.5 mg/dL (2.7-4.5); POTASSIUM 4.2 mmol/L (3.5-5.1); SODIUM SERUM 137 mmol/L (136-145); TOTAL BILIRUBIN 0.6 mg/dL (0.0-1.0); UREA NITROGEN, BLOOD 37 mg/dL (8-21)
--- NOTE | 2022-04-14 06:57 | NUR ---
CLOSING NOTES: Patient is in bed resting no s/s of distress is noted at this time. Patient is AA&Ox4 able to verbalize needs. All current shift needs have been met at this time. Safety measures are in place at this time, and patient has call light within reach. Will differ further care to AM shift for continuity of care.
[2022-04-14 08:20] VITALS: BP_SYST 122
[2022-04-14] MEDS: amLODIPine BESYLATE 10 MG TABLET PO SCH (08:54)
[2022-04-14] MEDS: PANTOPRAZOLE SODIUM 40 MG TAB PO SCH (08:54)
[2022-04-14] MEDS: LACTOBACILLUS RHAMNOSUS GG 1 CAP CAPSULE PO SCH ×2 (08:54→20:46)
[2022-04-14] MEDS: ASPIRIN 81 MG TABLET(ECOTRIN) PO SCH (08:54)
[2022-04-14] MEDS: CEFEPIME 1 GM in D5W 50 ML IV SCH ×2 (08:55→20:45)
[2022-04-14] MEDS: DOCUSATE SODIUM 250 MG CAPSULE PO SCH ×2 (08:55→20:50)
[2022-04-14] MEDS: GLIMEPIRIDE 2 MG TABLET PO SCH ×2 (08:55→17:18)
[2022-04-14] MEDS ORDERED: SEMAGLUTIDE 3 MG PO SCH (09:00)
[2022-04-14] MEDS ORDERED: FLUCONAZOLE 100 MG TABLET (DIFLUCAN) PO SCH (09:00)
[2022-04-14] MEDS ORDERED: lisinopriL 20 MG TABLET PO SCH (09:00)
[2022-04-14] MEDS ORDERED: NON-FORMULARY MEDICATION (Mirabegron (Myrbetriq) 25 MG) SCH (09:00)
[2022-04-14] MEDS ORDERED: NON-FORMULARY MEDICATION (Linaclotide (Linzess) 145 MCG) PO SCH (09:00)
[2022-04-14] MEDS ORDERED: NON-FORMULARY MEDICATION (Empagliflozin (Jardiance) 10 MG) PO SCH (09:00)
[2022-04-14] MEDS: METOPROLOL TARTRATE 25 MG TABLET PO SCH ×2 (09:09→20:49)
--- NOTE | 2022-04-14 11:29 | NUR ---
PT REQUESTED TO HAVE NEW IV SITE DONE. IV SITE ON LEFT WRIST IS PAINFUL PER PT- SITE REMOVED WITH CATHETER INTACT. PLACED NEW IV SITE ON LEFT HAND, 22G, PATENT WITH GOOD BLOOD RETURN. PT TOLERATED PROCEDURE WELL.
[2022-04-14] MEDS ORDERED: MAGNESIUM CITRATE 300 ML ORAL SOLUTION PO ONE (11:30)
[2022-04-14] MEDS: METOCLOPRAMIDE HCL 10 MG TABLET PO SCH ×3 (12:04→20:50)
--- NOTE | 2022-04-14 12:27 | NUR ---
MILL AND COAL TRANSPORT OPERATOR ARVIN Jasmyn responded to a Social Work Consultation for "Home Safety". TRIBAL JUDGE also consulted with assigned manager research development Katie on patient's needs TRIBAL JUDGE met with patient at bedside. Patient was sitting on side of bed eating lunch. She was alert and oriented x4. TRIBAL JUDGE completed introductions, reason for referral and provided business card. Patient was open to contact Current concern- Patient currently resides alone. Social- Patient is . Her of 53 years currently resides in a Board and care due to her not being able to attend to all his needs related to Parkinsons. She has a adult daughter Columba and son-in-law and 2 grandchildren. According to patient, she has a Caregiver Emilie Tineo who comes to her home 4 times a week for 4 hours. She states she feels safe in her home and is able to attend to her own needs. TRIBAL JUDGE utilized empathetic and reflective listening techniques to acknowledge patient's expression related to having to put her in a Board and Care. TRIBAL JUDGE offered patient senior related resources but patient declined. ARVIN Vines will continue to be available as needed
--- NOTE | 2022-04-14 17:12 | NUR ---
PT REQUESTING FOR LIDODERM PATCH FOR BACK PAIN. PAGED AND S/W DR. FOWLER, RECEIVED NEW ORDER FOR LIDODERM PATCH TWICE A DAY.
--- NOTE | 2022-04-14 17:18 | NUR ---
PT WANTS TO ONLY TAKE AMARYL 2MG DOSE FOR TONIGHT. PT'S BS DECREASED FROM LUNCH 133 TO 73.
[2022-04-14] MEDS ORDERED: LIDOCAINE PATCH 5% 1 EA TP ONE (18:00)
[2022-04-14] MEDS ORDERED: LATANOPROST 2.5 ML DROPS (XALATAN) OP SCH (18:00)
--- NOTE | 2022-04-14 18:07 | NUR ---
BLADDER SCAN QSHIFT DONE, NOTED ONLY >27 RESIDUAL.
--- NOTE | 2022-04-14 19:31 | NUR ---
OPENING NOTES: Patient received from AM shift. Patient is AA&Ox4 able to make needs known and has call light within reach. No s/s of distress is reported at this time. and patient is ambulatory and uses the beside commode independently. Safety measures are in place as per protocol. Will resume care and continue to monitor patient throughout the shift.
[2022-04-14 20:18] VITALS: BP_SYST 136
[2022-04-14] MEDS: GABAPENTIN 300 MG CAPSULE PO SCH (20:45)
[2022-04-14] MEDS: ATORVASTATIN 10 MG TABLET PO SCH (20:46)
[2022-04-14] MEDS: GEMFIBROZIL 600 MG TABLET (LOPID) PO SCH (20:49)
[2022-04-14] MEDS: LATANOPROST 2.5 ML DROPS (XALATAN) OP SCH (20:51)
[2022-04-15 01:00] VITALS: BP_SYST 123
[2022-04-15] MEDS: ACETAMINOPHEN 325 MG TABLET PO PRN ×3 (01:10→18:57)
[2022-04-15] MEDS: LORazepam 1 MG TABLET PO PRN (01:14)
--- NOTE | 2022-04-15 01:22 | NUR ---
Patient is in bed resting and requested tylenol because she was experiencing back pain. Medication was administered as per PRN. Patient layed back down. Will continue to monitor.
[2022-04-15] MEDS: NACL 0.9% 1,000 ML IV SCH ×2 (01:25→16:17)
--- NOTE | 2022-04-15 02:22 | NUR ---
BLADDER SCAN: Completed as per shift urine amount noted was 60cc.
[2022-04-15] MEDS: METOCLOPRAMIDE HCL 10 MG TABLET PO SCH ×4 (06:17→21:35)
[2022-04-15] MEDS: LEVOTHYROXINE SODIUM 0.075 MG TABLET PO SCH (06:17)
[2022-04-15 06:20] LABS: BASOPHILS # (AUTO) 0.1 K/uL (0.0-0.2); BASOPHILS % (AUTO) 1.2 % (0.0-2.0); EOSINOPHILS # (AUTO) 0.4 K/uL (0.0-0.4); EOSINOPHILS % (AUTO) 4.1 % (0.0-4.0); HEMATOCRIT 36.7 % (36-48); HEMOGLOBIN 12.3 g/dL (12.0-16.0); LYMPHOCYTES # (AUTO) 1.9 K/uL (1.0-5.5); LYMPHOCYTES % (AUTO) 22.2 % (20.5-51.5); MEAN CORPUSCULAR HEMOGLOBIN 28 pg (27-31); MEAN CORPUSCULAR HGB CONC 34 % (32-36); MEAN CORPUSCULAR VOLUME 84 fL (79.0-98.0); MONOCYTES % (AUTO) 11.6 % (1.7-9.3); NEUTROPHILS # (AUTO) 5.2 K/uL (1.8-7.7); NEUTROPHILS % (AUTO) 60.9 % (40.0-70.0); PLATELET COUNT (AUTO) 186 K/uL (130-430); RED BLOOD CELL COUNT(AUTO) 4.36 MIL/uL (4.2-6.2); WHITE BLOOD COUNT (AUTO) 8.6 K/uL (4.8-10.8)
--- NOTE | 2022-04-15 06:38 | NUR ---
CLOSING NOTES: Patient is in bed resting no s/s of distress is noted. Patient is AA&Ox4 able to verbalize needs, and has call light within reach. All current shift needs have been met at this time and patient received all scheduled medications and tolerated it well. Safety measures are in place as per protocol. Will differ further care to AM shift for continuity of care.
[2022-04-15 06:48] LABS: ALANINE AMINOTRANSFERASE 39 U/L (12-78); ALBUMIN 2.7 g/dL (3.4-4.8); ANION GAP 10 (5-15); ASPARTATE AMINOTRANSFERASE 39 U/L (10-37); CALCIUM 8.4 mg/dL (8.4-11.0); CHLORIDE 106 mmol/L (98-107); CREATININE 1.75 mg/dL (0.55-1.30); GLUCOSE 83 mg/dL (70-99); POTASSIUM 3.9 mmol/L (3.5-5.1); SODIUM SERUM 137 mmol/L (136-145); TOTAL BILIRUBIN 0.3 mg/dL (0.0-1.0); UREA NITROGEN, BLOOD 38 mg/dL (8-21)
--- NOTE | 2022-04-15 07:50 | NUR ---
OPENING NOTE Patient sitting at the side of the bed eating breakfast. No sign of distress, complains of generalized pain /. Patient updated on her plan of care for the day. Patient complains of frequent urination and has been able to ambulate to the bedside commode. All needs met at this time and safety checks made.
[2022-04-15 08:00] VITALS: BP_SYST 141
[2022-04-15] MEDS: CEFEPIME 1 GM in D5W 50 ML IV SCH ×2 (08:54→21:37)
[2022-04-15] MEDS: LIDOCAINE PATCH 5% 1 EA TP SCH ×2 (09:53→21:35)
[2022-04-15] MEDS: METOPROLOL TARTRATE 25 MG TABLET PO SCH ×2 (09:54→22:07)
[2022-04-15] MEDS: LACTOBACILLUS RHAMNOSUS GG 1 CAP CAPSULE PO SCH ×2 (09:56→21:34)
[2022-04-15] MEDS: PANTOPRAZOLE SODIUM 40 MG TAB PO SCH (09:56)
[2022-04-15] MEDS: DOCUSATE SODIUM 250 MG CAPSULE PO SCH ×2 (09:56→21:34)
[2022-04-15] MEDS: ASPIRIN 81 MG TABLET(ECOTRIN) PO SCH (09:56)
[2022-04-15] MEDS: GLIMEPIRIDE 2 MG TABLET PO SCH ×2 (09:57→18:56)
[2022-04-15] MEDS: amLODIPine BESYLATE 10 MG TABLET PO SCH (09:58)
[2022-04-15 12:00] VITALS: BP_SYST 103
[2022-04-15] MEDS ORDERED: FLUCONAZOLE 100 MG TABLET (DIFLUCAN) PO ONE (12:30)
[2022-04-15] MEDS ORDERED: MUPIROCIN 2% TOPICAL OINTMENT 22 GM NS ONE (13:00)
--- NOTE | 2022-04-15 19:41 | NUR ---
CLOSING NOTE Patient resting in bed, no sign of distress and denies pain at this time. IV is patent and running prescribed fluids. Patient states that she still has frequent urination and tenderness over the bladder. Patient is current on her plan of care and is aware Dr Brand will be in to perform an exam on her tomorrow. Patient refused her bladder scan this shift stating that her stomach is extremely tender from previous nurses pressing so hard when they scanned her. All needs met at this time and safety checks made. Endorsed to warehouse worker 2nd shift nurse.
[2022-04-15 20:00] VITALS: BP_SYST 123
--- NOTE | 2022-04-15 21:00 | NUR ---
HAND-OFF REPORT RECEIVED FROM JENN DE LOS SANTOS. ASSUMED CARE OF PT AT THIS TIME. PT A/0X4. INDEPENDENT USING BSC FOR FREQUENT URINATION. APPROX 3-3 TIMES PER HOUR.CLEAR TRINIDAD URINE APPROX 150 ML EACH TIME. PT STATED REQUEST CHANGE OF NURSE "BECAUSE I FEEL MORE COMFORTABLE WITH A LADY FOR THE BLADDER SCAN".
[2022-04-15] MEDS: GABAPENTIN 300 MG CAPSULE PO SCH (21:34)
[2022-04-15] MEDS: GEMFIBROZIL 600 MG TABLET (LOPID) PO SCH (21:34)
[2022-04-15] MEDS: ATORVASTATIN 10 MG TABLET PO SCH (21:34)
[2022-04-15] MEDS: LATANOPROST 2.5 ML DROPS (XALATAN) OP SCH (21:37)
[2022-04-15] MEDS: MUPIROCIN 2% TOPICAL OINTMENT 22 GM NS SCH (21:38)
[2022-04-16] VITALS: BP_SYST 118
[2022-04-16] MEDS: NACL 0.9% 1,000 ML IV SCH ×2 (01:00→11:14)
--- NOTE | 2022-04-16 01:00 | NUR ---
BLOOD SUGAR 67. D50 GIVEN WITH APPLE JUICE AND MISHA CRACKERS.
--- NOTE | 2022-04-16 01:30 | NUR ---
BLADDER SCAN 89 ML
[2022-04-16] MEDS: LORazepam 1 MG TABLET PO PRN (01:31)
--- NOTE | 2022-04-16 04:00 | NUR ---
BLOOD SUGAR 103.
[2022-04-16] MEDS: METOCLOPRAMIDE HCL 10 MG TABLET PO SCH ×2 (05:01→11:46)
[2022-04-16] MEDS: ACETAMINOPHEN 325 MG TABLET PO PRN ×2 (05:02→15:20)
[2022-04-16 05:58] LABS: BASOPHILS # (AUTO) 0.1 K/uL (0.0-0.2); BASOPHILS % (AUTO) 1.4 % (0.0-2.0); EOSINOPHILS # (AUTO) 0.4 K/uL (0.0-0.4); EOSINOPHILS % (AUTO) 4.8 % (0.0-4.0); HEMATOCRIT 36.3 % (36-48); LYMPHOCYTES # (AUTO) 1.9 K/uL (1.0-5.5); LYMPHOCYTES % (AUTO) 24.4 % (20.5-51.5); MEAN CORPUSCULAR HEMOGLOBIN 28 pg (27-31); MEAN CORPUSCULAR HGB CONC 33 % (32-36); MEAN CORPUSCULAR VOLUME 84 fL (79.0-98.0); MONOCYTES # (AUTO) 0.9 K/uL (0.0-1.0); MONOCYTES % (AUTO) 11.5 % (1.7-9.3); NEUTROPHILS # (AUTO) 4.5 K/uL (1.8-7.7); NEUTROPHILS % (AUTO) 57.9 % (40.0-70.0); PLATELET COUNT (AUTO) 182 K/uL (130-430); RED BLOOD CELL COUNT(AUTO) 4.34 MIL/uL (4.2-6.2); RED CELL DISTRIBUTION WIDTH 14.9 % (9.0-15.0); WHITE BLOOD COUNT (AUTO) 7.8 K/uL (4.8-10.8)
[2022-04-16 06:27] LABS: ANION GAP 9 (5-15); CALCIUM 8.7 mg/dL (8.4-11.0); CHLORIDE 106 mmol/L (98-107); CREATININE 1.36 mg/dL (0.55-1.30); GLUCOSE 113 mg/dL (70-99); POTASSIUM 4.2 mmol/L (3.5-5.1); SODIUM SERUM 137 mmol/L (136-145); UREA NITROGEN, BLOOD 33 mg/dL (8-21)
--- NOTE | 2022-04-16 07:30 | NUR ---
PM CLOSING NOTES ENDORSED TO A.M NURSE PT STATED TO SEE INTERNAL CONTROL SPECIALIST AT BEDSIDE TODAY TO DETERMINE WHAT IS CAUSING PRESSURE ON MT BLADDER GIVING ME THIS FEELING I HAVE TO GO ALL THE TIME. MEDICATED FOR HEADACHE X1 WIT TYLENOL SEE EMAR. BOWLINGLLINQUISHED CARE OF PT AT THIS TIME.
[2022-04-16] MEDS: LEVOTHYROXINE SODIUM 0.075 MG TABLET PO SCH (07:41)
[2022-04-16] MEDS: LACTOBACILLUS RHAMNOSUS GG 1 CAP CAPSULE PO SCH (08:44)
[2022-04-16] MEDS: PANTOPRAZOLE SODIUM 40 MG TAB PO SCH (08:44)
[2022-04-16] MEDS: ASPIRIN 81 MG TABLET(ECOTRIN) PO SCH (08:44)
[2022-04-16] MEDS: DOCUSATE SODIUM 250 MG CAPSULE PO SCH (08:44)
[2022-04-16] MEDS: GLIMEPIRIDE 2 MG TABLET PO SCH (08:45)
[2022-04-16] MEDS: MUPIROCIN 2% TOPICAL OINTMENT 22 GM NS SCH (08:47)
[2022-04-16] MEDS: METOPROLOL TARTRATE 25 MG TABLET PO SCH (08:48)
[2022-04-16] MEDS: amLODIPine BESYLATE 10 MG TABLET PO SCH (08:48)
[2022-04-16] MEDS: CEFEPIME 1 GM in D5W 50 ML IV SCH (08:54)
[2022-04-16] MEDS: LIDOCAINE PATCH 5% 1 EA TP SCH (08:55)
[2022-04-16] MEDS ORDERED: FLUCONAZOLE 100 MG TABLET (DIFLUCAN) PO SCH (09:00)
[2022-04-16] MEDS ORDERED: BACTROBAN NS (09:53)
[2022-04-16 10:13] VITALS: BP_SYST 104
[2022-04-16 10:15] VITALS: BP_SYST 104
[2022-04-16] MEDS ORDERED: LINEZOLID 600 MG TABLET PO ONE (10:15)
[2022-04-16 11:44] VITALS: BP_SYST 153
[2022-04-16] MEDS ORDERED: cephALEXin 250 MG CAPSULE PO SCH (12:00)
--- NOTE | 2022-04-16 13:43 | NUR ---
Discharge Planning: DCP faxed pt referral to [facility] [phone] DCP to follow up Addendum: 04/16/22 at 1534 by Elba Zayas DP Assisted [phone] per January patient is accepted
[2022-04-16 15:03] VITALS: BP_SYST 126
[2022-04-16] MEDS: ONDANSETRON HCL 4 MG/2 ML VIAL IVP PRN (15:21)
[2022-04-16 15:44] VITALS: BP_SYST 140
[2022-04-16] MEDS ORDERED: CLOTRIMAZOLE 1% TOPICAL CREAM 15 GM TP ONE (16:00)
[2022-04-16] MEDS ORDERED: CLOTRIMAZOLE 1% TOPICAL CREAM 15 GM TP SCH (21:00)
[2022-04-16] MEDS ORDERED: LINEZOLID 600 MG TABLET PO SCH (21:00)
== END 2022-04-16 17:00 | disposition home health service (06) | DRG 758 ==
LOC: SED 08:30 → SMU 11:59
PROVIDERS: ADMIT Internal Medicine; ATTEND Internal Medicine
DX: B37.3 Candidiasis of vulva and vagina (principal); N17.9 Acute kidney failure, unspecified; N30.01 Acute cystitis with hematuria; N28.1 Cyst of kidney, acquired; E11.65 Type 2 diabetes mellitus with hyperglycemia; I12.9 Hypertensive chronic kidney disease with stage 1 through stage 4 chronic kidney disease, or unspecified chronic kidney disease; E03.9 Hypothyroidism, unspecified; E78.5 Hyperlipidemia, unspecified; J45.909 Unspecified asthma, uncomplicated; E11.22 Type 2 diabetes mellitus with diabetic chronic kidney disease; N18.30 Chronic kidney disease, stage 3 unspecified; E78.00 Pure hypercholesterolemia, unspecified; M54.9 Dorsalgia, unspecified; G89.29 Other chronic pain; I25.10 Atherosclerotic heart disease of native coronary artery without angina pectoris; Z60.2 Problems related to living alone; N32.81 Overactive bladder; E66.01 Morbid (severe) obesity due to excess calories; K58.9 Irritable bowel syndrome, unspecified; Z20.822 Contact with and (suspected) exposure to COVID-19; Z79.82 Long term (current) use of aspirin; Z79.899 Other long term (current) drug therapy; Z68.34 Body mass index [BMI] 34.0-34.9, adult
CPT/HCPCS: 36415; 76376; 80048; 80053; 81000; 82150; 82962; 83036; 83605; 83690; 84100; 85025; 86140; 87081; 87086; 87186-TC; 96374; 99285; J0692; J0696; J2405; J7060; J8597; Q0162

== ENCOUNTER 2022-04-17 21:02 | Inpatient (IN) | payer OTHER, MEDICARE ==
[~2022-04-17] VITALS: Ht 165.1 cm; Wt 122.5 kg
[~2022-04-17 21:02] MED LIST changes: +BACTROBAN NS; +GLIM4TAB PO; +LINA145C PO; +NADO20TA9 PO; +NADO40TA PO; +NITR-85 PO; +SEMA3TAB4 PO; +[UNRECOGNIZED DRUG - CODE]
[2022-04-17 21:11] VITALS: BP_SYST 143
--- NOTE | 2022-04-17 21:20 | NUR ---
PATIENT SEEN HERE INPATIENT YESTERDAY, TREATED FOR ECOLI IN URINE, NOW HAS BLOOD IN URINE
[2022-04-17 22:35] LABS: ANION GAP 11 (5-15); CALCIUM 9.3 mg/dL (8.4-11.0); CHLORIDE 106 mmol/L (98-107); CREATININE 1.49 mg/dL (0.55-1.30); GLUCOSE 168 mg/dL (70-99); POTASSIUM 4.7 mmol/L (3.5-5.1); SODIUM SERUM 138 mmol/L (136-145); UREA NITROGEN, BLOOD 34 mg/dL (8-21)
[2022-04-17 22:41] LABS: PROTHROMBIN TIME 10.4 SECS (9.5-12.5)
[2022-04-17 22:44] LABS: ALANINE AMINOTRANSFERASE 36 U/L (12-78); ALBUMIN 3.2 g/dL (3.4-4.8); ASPARTATE AMINOTRANSFERASE 42 U/L (10-37); TOTAL BILIRUBIN 0.2 mg/dL (0.0-1.0)
[2022-04-17 22:48] LABS: BASOPHILS # (AUTO) 0.2 K/uL (0.0-0.2); BASOPHILS % (AUTO) 2.4 % (0.0-2.0); EOSINOPHILS # (AUTO) 0.5 K/uL (0.0-0.4); EOSINOPHILS % (AUTO) 4.6 % (0.0-4.0); HEMATOCRIT 39.4 % (36-48); HEMOGLOBIN 13.2 g/dL (12.0-16.0); LYMPHOCYTES # (AUTO) 1.8 K/uL (1.0-5.5); LYMPHOCYTES % (AUTO) 18.4 % (20.5-51.5); MEAN CORPUSCULAR HEMOGLOBIN 28 pg (27-31); MEAN CORPUSCULAR HGB CONC 34 % (32-36); MEAN CORPUSCULAR VOLUME 84 fL (79.0-98.0); MONOCYTES # (AUTO) 0.9 K/uL (0.0-1.0); NEUTROPHILS # (AUTO) 6.5 K/uL (1.8-7.7); NEUTROPHILS % (AUTO) 65.6 % (40.0-70.0); PLATELET COUNT (AUTO) 211 K/uL (130-430); RED BLOOD CELL COUNT(AUTO) 4.66 MIL/uL (4.2-6.2); RED CELL DISTRIBUTION WIDTH 14.9 % (9.0-15.0); WHITE BLOOD COUNT (AUTO) 9.9 K/uL (4.8-10.8)
--- NOTE | 2022-04-17 23:30 | NUR ---
Pt in bed 1 at this time s/p recent d/c due to "E. Coli and MRSA UTI". Pt states hematuria, urinary frequency, dysuria. Pt on campus monitor. pulse oximetry on. Bed in low position. Side rails up.
--- NOTE | 2022-04-17 23:43 | NUR ---
Pt given bedside commode and hygienic wipes at this time
[2022-04-17 23:45] LABS: BILIRUBIN,URINE NEGATIVE (NEGATIVE); BLOOD, URINE 3+ (NEGATIVE); CLARITY/URINE CLEAR (CLEAR); COLOR,URINE RED (YELLOW); GLUCOSE,URINE NEGATIVE (NEGATIVE); KETONES,URINE NEGATIVE (NEGATIVE); LEUKOCYTE ESTERASE ,URINE 1+ (NEGATIVE); NITRITE, URINE POSITIVE (NEGATIVE); PH,URINE 6.5 (5.0-8.0); PROTEIN URINE 3+ (NEGATIVE)
--- NOTE | 2022-04-18 01:14 | NUR ---
Per MD, 3-way fernandez catheter to be inserted into patient to perform continuous bladder irrigation due to bright red hematuria.
[2022-04-18 01:27] LABS: RBC,URINE >100 /HPF (0-3)
[2022-04-18 01:30] LABS: BACTERIA,URINE FEW /HPF (None Seen)
[2022-04-18] MEDS ORDERED: cefTRIAXone 1 GM IVPB PREMIX 50 ML IV ONE (01:30)
[2022-04-18] MEDS ORDERED: PHENAZOPYRIDINE HCL 100 MG TABLET PO ONE (01:30)
[2022-04-18 01:31] LABS: MUCUS,URINE None Seen /LPF (None Seen)
--- NOTE | 2022-04-18 02:34 | NUR ---
# 22 gauge angiocath placed to right forearm. Use of asceptic technique. Opsite placed over site. Blood return noted. Blood for lab drawn from site. Flushed with 10 cc of normal saline. No evidence of infiltration noted. Patient tolerated well.
--- NOTE | 2022-04-18 03:12 | NUR ---
18 Fr 3-way fernandez catheter inserted into patient's urethra and Continuous Bladder Irrigation started at this time. Fernandez return pinkish in color at this time.
[2022-04-18] MEDS ORDERED: traMADol HCL HCL 50 MG TABLET (ULTRAM) PO ONE ×2 (03:15→13:00)
[2022-04-18] MEDS ORDERED: traMADol HCL HCL 50 MG TABLET (ULTRAM) ONE (03:47)
--- NOTE | 2022-04-18 04:22 | NUR ---
Pt readjusted in bed at this time per pt request. Pt turned to left side and wedge placed underneath patient's right side to alleviate pressure.
--- NOTE | 2022-04-18 05:00 | NUR ---
2550 mL drained from fernandez bag at this time and new 3,000 mL CBI bag initiated at this time,
--- NOTE | 2022-04-18 05:44 | NUR ---
Admit bed requested Patient will be admitted to care of [GENE]. Admitted to [MED SURG] unit. Diagnosis [UTI/HEMATURIA] Inpatient (Yes or No) [YES] Observation (Yes or No) [NO] Orientation concerns or request close to nursing station (Yes or No) [NO] Covid Status [PEND] On vent or bipap [NO] Isolation requirements [NO] Needs a sitter [NO] From Home (Yes or if No enter name of facility) [YES] Requires Dialysis (Yes or No) [NO] Med Rec Completed (Yes of No) [NO]
[2022-04-18] MEDS ORDERED: KCL 20 mEq in D5NS 1000 mL 1,000 ML IV SCH (05:45)
--- NOTE | 2022-04-18 06:36 | NUR ---
2500 mL drained from Drainage bag at this time. New 3,000 mL CBI NS bag placed at this time.
--- NOTE | 2022-04-18 07:42 | NUR ---
a/ox4 vss, appears to be in no acute distress noted at this time, cbi still running
--- NOTE | 2022-04-18 07:45 | NUR ---
PT STATED SHE REQUESTED FOR A FEMALE NURSE
--- NOTE | 2022-04-18 08:00 | NUR ---
PT REQUESTED FOR HER BLOOD SUGAR TO BE CHECKED
--- NOTE | 2022-04-18 08:30 | NUR ---
PT REQUESTED FOR HER BED TO BE RAISED
[2022-04-18] MEDS: CEFEPIME 1 GM in D5W 50 ML IV SCH ×2 (09:00→23:39)
--- NOTE | 2022-04-18 09:40 | NUR ---
PT GIVEN JUICE AT THIS TIME
[2022-04-18] MEDS ORDERED: CEFEPIME 1 GM/VIAL (MAXIPIME) ONE ×2 (10:28→23:04)
--- NOTE | 2022-04-18 10:34 | NUR ---
PT REQUESTED TO SIT UP IN BED FOR COMFORT
--- NOTE | 2022-04-18 12:37 | NUR ---
DR OVIEDO AT BEDSIDE AT THIS TIME
[2022-04-18] MEDS ORDERED: CHOLECALCIFEROL PO SCH (12:45)
[2022-04-18] MEDS ORDERED: LORazepam 1 MG TABLET PO PRN (12:45)
[2022-04-18] MEDS ORDERED: FLUCONAZOLE 100 MG TABLET (DIFLUCAN) PO ONE (13:00)
[2022-04-18] MEDS ORDERED: DOCUSATE SODIUM 250 MG CAPSULE PO ONE (13:00)
[2022-04-18] MEDS ORDERED: LEVOTHYROXINE SODIUM 0.075 MG TABLET PO ONE (13:00)
[2022-04-18] MEDS ORDERED: amLODIPine BESYLATE 10 MG TABLET PO ONE (13:00)
[2022-04-18] MEDS ORDERED: INSULIN REGULAR, HUMAN 100 UNITS/ML, 10 ML VIAL (humuLIN R) SUBCUT PRN (13:00)
[2022-04-18] MEDS ORDERED: lisinopriL 20 MG TABLET PO ONE (13:00)
[2022-04-18] MEDS ORDERED: PANTOPRAZOLE SODIUM 40 MG TAB PO ONE (13:00)
[2022-04-18] MEDS ORDERED: LACTOBACILLUS RHAMNOSUS GG 1 CAP CAPSULE PO ONE (13:15)
[2022-04-18] MEDS ORDERED: METOPROLOL TARTRATE 25 MG TABLET PO ONE (13:15)
--- NOTE | 2022-04-18 13:18 | NUR ---
PT REQUESTING FOOD TRAY
[2022-04-18] MEDS: GLIMEPIRIDE 2 MG TABLET PO SCH (16:40)
--- NOTE | 2022-04-18 17:19 | NUR ---
PT SITTING UP ON SIDE OF BED TALKING ON THE PHONE
[2022-04-18] MEDS: traMADol HCL HCL 50 MG TABLET (ULTRAM) PO SCH (17:55)
--- NOTE | 2022-04-18 17:57 | NUR ---
Pt glucose levels is 147 via glucometer
--- NOTE | 2022-04-18 19:15 | NUR ---
Received report at this time. NOtified that patient has had 2,500ml urine input and 2,800ml urine output. Pt currently has continuous bladder irrigation. Pt presently on monitor. No acute distress noted.
[2022-04-18] MEDS ORDERED: ONDANSETRON HCL 4 MG/2 ML VIAL ONE (19:52)
[2022-04-18] MEDS: ONDANSETRON HCL 4 MG/2 ML VIAL IVP PRN (19:53)
--- NOTE | 2022-04-18 19:55 | NUR ---
Patient will be admitted to care of Dr. Mtz. Admitted to Med-Surg unit. Will go to room 106 Bed A . Belongings list completed. Complete and up to date summary report printed. SBAR report given at bedside with opportunity for questions.
--- NOTE | 2022-04-18 20:15 | NUR ---
ADMISSION FROM ER REPORT RECEIVED FROM FORD DE LOS SANTOS. PT FROM HOME. UPON USING TOILET NOTED A LARGE AMT OF BRIGHT RED BLOOD PASSED INTO THE TOILET. ADMITTED FOR UTI/HEMATURIA. ALSO REPORTED UPON LAST ADMISSION THIS MONTH PT POSITIVE FOR MRSA, ECOLI IN URINE THEREFORE CONTACT ISOLATION. RECEIVED 76 YO FROM ER WITH C/C OF BLOOD IN URINE AND DX OF HEMATURIA/UTI. ADMITTED TO ROOM 106A WITH ACCOMPANYING 3WAY LEIJA FOR CONTINUOUS BLADDER IRRIGATION WITH URINE NOTED IN THE LEIJA BAG TO BE DEEP HERMINIA-RED AND IRRIGATION DRIP MODERATE TO SLOW. TUBES MILKED WITH SMALL OCCASIONAL CLOTS NOTED IN TUBING. PT DENIES ABD PAIN STATING, "MOST OF WHAT I'M CALLING PAIN IS HAVING THE CATHETER AND MY BACK FROM THE ER MATTRESS. OTHERWISE NO PAIN." ABDOMEN GROSSLY DISTENDED AND SOFT, FLOPPING TO THE LEFT SIDE WITH A NOTABLE OUTPOUCH ON LEFT LATERAL SIDE WHEN SUPINE. SKIN INTACT.
[2022-04-18] MEDS: MUPIROCIN 2% TOPICAL OINTMENT 22 GM NS SCH (21:00)
[2022-04-18] MEDS: CLOTRIMAZOLE/BETAMET DIPROP 15 GM TUBE TP SCH (21:00)
[2022-04-18] MEDS: LATANOPROST 2.5 ML DROPS (XALATAN) OP SCH (21:00)
[2022-04-18 21:30] VITALS: BP_SYST 123
[2022-04-18] MEDS: GABAPENTIN 300 MG CAPSULE PO SCH (23:40)
[2022-04-18] MEDS: ATORVASTATIN 10 MG TABLET PO SCH (23:40)
[2022-04-18] MEDS: LACTOBACILLUS RHAMNOSUS GG 1 CAP CAPSULE PO SCH (23:40)
[2022-04-18] MEDS: DOCUSATE SODIUM 250 MG CAPSULE PO SCH (23:40)
[2022-04-18] MEDS: GEMFIBROZIL 600 MG TABLET (LOPID) PO SCH (23:40)
[2022-04-18] MEDS: METOPROLOL TARTRATE 25 MG TABLET PO SCH (23:42)
[2022-04-19] MEDS: traMADol HCL HCL 50 MG TABLET (ULTRAM) PO SCH ×4 (00:18→23:27)
[2022-04-19 04:00] VITALS: BP_SYST 125
--- NOTE | 2022-04-19 06:00 | NUR ---
PASSAGE OF BLOOD CLOTS PT C/O ABDOMINAL CRAMPING. MANUAL IRRIGATION DISLODGED SEVERAL LARGE [id number] CLOTS WITH ALMOST IMMEDIATE GRADUAL RELIEF OF ABD PAIN. PT STATED I WAS SCREAMING AND NO ONE CAME FAST ENOUGH! CONT'D WITH SECOND FLUSH FURTHER CLOTS LINING UP TO PASS THRU SMALL DIAMETER OF TUBING AND CAN'T. GOOD RESULTS. REASSURED PT THIS IS A NORMAL PROCESS WITH HER CONDITION. THE GOAL IS TO PASS THESE CLOTS AND WE WILL ATTEMPT TO GET TO HER QUICKLY WE CAN A FLUSH MORE FREQUENTLY BY HAND IF NECESSARY. PT FEARS LESSENING SHE IS PAIN FREE ONCE MORE.
[2022-04-19] MEDS ORDERED: DEXTROSE 50% JECT 50 ML DISP.SYRIN ONE (06:08)
[2022-04-19 06:10] LABS: BASOPHILS # (AUTO) 0.1 K/uL (0.0-0.2); EOSINOPHILS # (AUTO) 0.5 K/uL (0.0-0.4); EOSINOPHILS % (AUTO) 5.5 % (0.0-4.0); HEMATOCRIT 36.1 % (36-48); HEMOGLOBIN 12.1 g/dL (12.0-16.0); LYMPHOCYTES # (AUTO) 2.7 K/uL (1.0-5.5); LYMPHOCYTES % (AUTO) 27.6 % (20.5-51.5); MEAN CORPUSCULAR HEMOGLOBIN 28 pg (27-31); MEAN CORPUSCULAR HGB CONC 33 % (32-36); MEAN CORPUSCULAR VOLUME 84 fL (79.0-98.0); MONOCYTES # (AUTO) 0.9 K/uL (0.0-1.0); MONOCYTES % (AUTO) 9.4 % (1.7-9.3); NEUTROPHILS # (AUTO) 5.6 K/uL (1.8-7.7); NEUTROPHILS % (AUTO) 56.5 % (40.0-70.0); PLATELET COUNT (AUTO) 207 K/uL (130-430); RED BLOOD CELL COUNT(AUTO) 4.28 MIL/uL (4.2-6.2)
[2022-04-19] MEDS ORDERED: D5W 1,000 ML IV PRN (06:45)
[2022-04-19] MEDS ORDERED: GLUCOSE (DEXTROSE) ORAL GEL -Adults PO PRN (06:45)
[2022-04-19] MEDS ORDERED: DEXTROSE 50% JECT 50 ML DISP.SYRIN IVP PRN (06:45)
[2022-04-19] MEDS: GLIMEPIRIDE 2 MG TABLET PO SCH ×2 (07:00→18:44)
--- NOTE | 2022-04-19 07:00 | NUR ---
0630 BLOOD SUGAR 15. PT ASYMPTOMATIC, D50 IVP GIVEN. NOTIFIED BS 15. PT ASYMPTOMATIC AND D50 GIVEN ALONG WITH 2 APPLE JUICES. 0645 BLOOD SUGAR AFTER D50/JUICE 255. 0700 DR OVIEDO PHONED AND CALLED BACK AT THIS TIME. NO NEW ORDERS. "JUST LET HER EAT BREAKFAST".
[2022-04-19 07:25] LABS: ANION GAP 12 (5-15); CALCIUM 9.2 mg/dL (8.4-11.0); CHLORIDE 106 mmol/L (98-107); CREATININE 1.11 mg/dL (0.55-1.30); GLUCOSE 100 mg/dL (70-99); POTASSIUM 4.2 mmol/L (3.5-5.1); SODIUM SERUM 139 mmol/L (136-145); UREA NITROGEN, BLOOD 23 mg/dL (8-21)
[2022-04-19] MEDS: LEVOTHYROXINE SODIUM 0.075 MG TABLET PO SCH (07:26)
--- NOTE | 2022-04-19 07:30 | NUR ---
HAND-OFF REPORT TO MITRA DE LOS SANTOS. WITH BEDSIDE ROUNDS AND DEMONSTRATION OF MANUAL IRRIGATION OF 3 WAY LEIJA TO DISLODGE CLOTS. STATED UNDERSTOOD. PT REMAINS AT PAIN FREE AND READY TO EAR BREAKFAST. A.M AMARYL HELD. RELINQUISHED CARE OF PT AT THIS TIME.
[2022-04-19 08:00] VITALS: BP_SYST 124
--- NOTE | 2022-04-19 08:00 | NUR ---
OPENING NOTES: PATIENT RESTING IN BED. BREATHING EVEN AND NON LABORED TO RA. FALL AND SAFETY MEASURES RENDERED. CALL LIGHT WITHIN REACH.
[2022-04-19] MEDS: METOPROLOL TARTRATE 25 MG TABLET PO SCH ×2 (09:00→21:00)
[2022-04-19] MEDS ORDERED: NON-FORMULARY MEDICATION (Empagliflozin (Jardiance) 10 MG) PO SCH (09:00)
[2022-04-19] MEDS ORDERED: SEMAGLUTIDE 3 MG PO SCH (09:00)
[2022-04-19] MEDS ORDERED: NON-FORMULARY MEDICATION (Mirabegron (Myrbetriq) 25 MG) SCH (09:00)
[2022-04-19] MEDS ORDERED: NON-FORMULARY MEDICATION (Linaclotide (Linzess) 145 MCG) PO SCH (09:00)
[2022-04-19] MEDS: LACTOBACILLUS RHAMNOSUS GG 1 CAP CAPSULE PO SCH ×2 (09:16→21:47)
[2022-04-19] MEDS: DOCUSATE SODIUM 250 MG CAPSULE PO SCH ×2 (09:17→21:47)
[2022-04-19] MEDS: FLUCONAZOLE 100 MG TABLET (DIFLUCAN) PO SCH (09:17)
[2022-04-19] MEDS: amLODIPine BESYLATE 10 MG TABLET PO SCH (09:17)
[2022-04-19] MEDS: lisinopriL 20 MG TABLET PO SCH (09:18)
[2022-04-19] MEDS: CEFEPIME 1 GM in D5W 50 ML IV SCH ×2 (09:22→21:49)
[2022-04-19] MEDS: CLOTRIMAZOLE/BETAMET DIPROP 15 GM TUBE TP SCH ×2 (09:35→21:49)
[2022-04-19] MEDS: PANTOPRAZOLE SODIUM 40 MG TAB PO SCH (09:36)
[2022-04-19] MEDS: MUPIROCIN 2% TOPICAL OINTMENT 22 GM NS SCH ×2 (09:36→21:48)
[2022-04-19 12:00] VITALS: BP_SYST 109
--- NOTE | 2022-04-19 12:01 | NUR ---
CONSULT: UROLOGY HEMOTURIA LEFT DETAILED MESSAGED FOR DR. GILES JOSEPH
[2022-04-19 16:00] VITALS: BP_SYST 105
[2022-04-19] MEDS: ONDANSETRON HCL 4 MG/2 ML VIAL IVP PRN (18:45)
--- NOTE | 2022-04-19 19:20 | NUR ---
CLOSING NOTES: PATIENT RESTING IN BED. NO S/S OF ACUTE DISTRESS NOTED. FLUSHING OF LEIJA CATHETER X 5. NO CLOTS NOTED. DRAINING BY GRAVITY. NEEDS MET THROUGHOUT SHIFT. ENDORSED TO RAT EXTERMINATOR RN.
[2022-04-19 19:25] VITALS: BP_SYST 100
--- NOTE | 2022-04-19 19:25 | NUR ---
PM ASSESSMENT; -Pt is a/ox4, resting in bed comfortably. IV site of rt f/a patent after flushed w/ NS,no s/s any infiltration noted. Giron cath w/ 3 ways with gravity drains well light pinkish urine noted. Side rails x2,call light w/in reach. Maintains contact isolation. Discussed poc,all safety measures, pain mgmt, not to get out bed by self, to use call light for assistance or if experiencing any pain,sob, or any distress, pt verbalized understanding. Pt is able to use call light for assistance with good return demonstration. Cont to monitor pt
[2022-04-19] MEDS: LATANOPROST 2.5 ML DROPS (XALATAN) OP SCH (21:00)
[2022-04-19] MEDS: GEMFIBROZIL 600 MG TABLET (LOPID) PO SCH (21:47)
[2022-04-19] MEDS: GABAPENTIN 300 MG CAPSULE PO SCH (21:48)
[2022-04-19] MEDS: ATORVASTATIN 10 MG TABLET PO SCH (21:48)
[2022-04-19] MEDS: LINEZOLID 300 ML IV SCH (21:49)
[2022-04-19 23:27] VITALS: BP_SYST 114
--- NOTE | 2022-04-19 23:27 | NUR ---
ROUNDS; -Pt is laying in bed. Pt is c/o back pain, gave Ultram po routinely scheduled. Will reassess pain level w/in an hour. IV site of rt f/a infiltration, removed a tip with whole catheter removed and gauze applied,no active bleeding noted. Inserted new IV site by Jessica on left f/a #22, attempted x2, good blood returns noted. Continuing to infuse Antibotic. Giron cath w/ 3 ways with gravity drains well jennifer urine. Side rails x2,call light w/in reach. Maintains contact isolation. Cont to monitor pt.
--- NOTE | 2022-04-20 02:03 | NUR ---
ROUNDS; BLOOD [id number] -Pt is laying in bed. Pt is c/o feeling shaky, checked blood aazvw=[id number]. Pt stated," Drank orange juice." Giron cath w/ 3 ways with gravity drains well jennifer urine. Side rails x2,call light w/in reach. Maintains contact isolation. Cont to monitor pt.
--- NOTE | 2022-04-20 04:15 | NUR ---
ROUNDS; -Pt is asleep. NO s/s any pain,sob,or any acute distress noted. Giron cath w/ 3 ways with gravity drains well jennifer urine. Side rails x2,call light w/in reach. Maintains contact isolation. Cont to monitor pt.
[2022-04-20] MEDS: LEVOTHYROXINE SODIUM 0.075 MG TABLET PO SCH (06:23)
[2022-04-20] MEDS: traMADol HCL HCL 50 MG TABLET (ULTRAM) PO SCH ×3 (06:24→15:21)
[2022-04-20] MEDS: GLIMEPIRIDE 2 MG TABLET PO SCH ×2 (06:36→17:29)
[2022-04-20 06:39] LABS: ANION GAP 10 (5-15); CALCIUM 8.7 mg/dL (8.4-11.0); CHLORIDE 102 mmol/L (98-107); CREATININE 1.24 mg/dL (0.55-1.30); GLUCOSE 168 mg/dL (70-99); SODIUM SERUM 135 mmol/L (136-145); UREA NITROGEN, BLOOD 24 mg/dL (8-21)
[2022-04-20 06:42] LABS: BASOPHILS # (AUTO) 0.1 K/uL (0.0-0.2); BASOPHILS % (AUTO) 1.1 % (0.0-2.0); EOSINOPHILS # (AUTO) 0.4 K/uL (0.0-0.4); EOSINOPHILS % (AUTO) 3.8 % (0.0-4.0); HEMATOCRIT 35.7 % (36-48); HEMOGLOBIN 11.7 g/dL (12.0-16.0); LYMPHOCYTES # (AUTO) 2.4 K/uL (1.0-5.5); LYMPHOCYTES % (AUTO) 24.6 % (20.5-51.5); MEAN CORPUSCULAR HEMOGLOBIN 28 pg (27-31); MEAN CORPUSCULAR HGB CONC 33 % (32-36); MEAN CORPUSCULAR VOLUME 85 fL (79.0-98.0); MONOCYTES % (AUTO) 10.3 % (1.7-9.3); NEUTROPHILS # (AUTO) 5.9 K/uL (1.8-7.7); NEUTROPHILS % (AUTO) 60.2 % (40.0-70.0); PLATELET COUNT (AUTO) 191 K/uL (130-430); RED CELL DISTRIBUTION WIDTH 15.1 % (9.0-15.0); WHITE BLOOD COUNT (AUTO) 9.8 K/uL (4.8-10.8)
--- NOTE | 2022-04-20 06:56 | NUR ---
CLOSING NOTES; -Pt is resting in bed comfortably. IV site of rt f/a patent after flushed w/ NS,no s/s any infiltration noted. Giron cath w/ 3 ways with gravity drains well light pinkish urine noted. Side rails x2,call light w/in reach. Maintains contact isolation entire time. Will endorse to next nurse to cont care.
[2022-04-20] MEDS: CEFEPIME 1 GM in D5W 50 ML IV SCH ×2 (09:00→23:15)
[2022-04-20] MEDS: CLOTRIMAZOLE/BETAMET DIPROP 15 GM TUBE TP SCH ×2 (09:00→21:00)
[2022-04-20] MEDS: lisinopriL 20 MG TABLET PO SCH (09:00)
[2022-04-20] MEDS: METOPROLOL TARTRATE 25 MG TABLET PO SCH ×2 (09:00→21:00)
[2022-04-20] MEDS: PANTOPRAZOLE SODIUM 40 MG TAB PO SCH (10:21)
[2022-04-20] MEDS: FLUCONAZOLE 100 MG TABLET (DIFLUCAN) PO SCH (10:21)
[2022-04-20] MEDS: DOCUSATE SODIUM 250 MG CAPSULE PO SCH ×2 (10:21→23:14)
[2022-04-20] MEDS: LACTOBACILLUS RHAMNOSUS GG 1 CAP CAPSULE PO SCH ×2 (10:21→23:13)
[2022-04-20] MEDS: amLODIPine BESYLATE 10 MG TABLET PO SCH (10:22)
[2022-04-20 12:00] VITALS: BP_SYST 123
[2022-04-20] MEDS: ONDANSETRON HCL 4 MG/2 ML VIAL IVP PRN (14:16)
[2022-04-20] MEDS: LINEZOLID 300 ML IV SCH ×2 (14:17→23:15)
[2022-04-20] MEDS: MUPIROCIN 2% TOPICAL OINTMENT 22 GM NS SCH ×2 (14:21→21:00)
--- NOTE | 2022-04-20 14:36 | NUR ---
Dietitian Recommendations * Continue [facility] diet [place], RD Please refer to Nutrition Assessment for details. Addendum: 04/20/22 at [address] Amended: Links added.
[2022-04-20] MEDS: ACETAMINOPHEN 325 MG TABLET PO PRN (15:48)
[2022-04-20 16:00] VITALS: BP_SYST 121
[2022-04-20] MEDS: LATANOPROST 2.5 ML DROPS (XALATAN) OP SCH (21:00)
[2022-04-20] MEDS: SENNOSIDES 8.6 MG TABLET PO SCH (23:12)
[2022-04-20] MEDS: GEMFIBROZIL 600 MG TABLET (LOPID) PO SCH (23:13)
[2022-04-20] MEDS: ATORVASTATIN 10 MG TABLET PO SCH (23:13)
[2022-04-20] MEDS: GABAPENTIN 300 MG CAPSULE PO SCH (23:13)
[2022-04-21] VITALS (7 sets, daily range): BP systolic 112–132
[2022-04-21] MEDS: traMADol HCL HCL 50 MG TABLET (ULTRAM) PO SCH ×5 (05:41→22:27)
[2022-04-21] MEDS: LEVOTHYROXINE SODIUM 0.075 MG TABLET PO SCH ×2 (05:41→22:20)
[2022-04-21] MEDS: GLIMEPIRIDE 2 MG TABLET PO SCH ×2 (06:24→18:03)
[2022-04-21] MEDS: METOPROLOL TARTRATE 25 MG TABLET PO SCH ×2 (09:00→22:23)
[2022-04-21] MEDS: PANTOPRAZOLE SODIUM 40 MG TAB PO SCH (09:00)
[2022-04-21] MEDS: CLOTRIMAZOLE/BETAMET DIPROP 15 GM TUBE TP SCH ×2 (09:56→22:24)
[2022-04-21] MEDS: LACTOBACILLUS RHAMNOSUS GG 1 CAP CAPSULE PO SCH ×2 (09:57→22:19)
[2022-04-21] MEDS: FLUCONAZOLE 100 MG TABLET (DIFLUCAN) PO SCH (09:57)
[2022-04-21] MEDS: LINEZOLID 300 ML IV SCH ×2 (09:57→22:26)
[2022-04-21] MEDS: MUPIROCIN 2% TOPICAL OINTMENT 22 GM NS SCH ×2 (09:57→22:25)
[2022-04-21] MEDS: DOCUSATE SODIUM 250 MG CAPSULE PO SCH ×2 (09:57→22:17)
[2022-04-21] MEDS: ACETAMINOPHEN 325 MG TABLET PO PRN (09:58)
[2022-04-21] MEDS: lisinopriL 20 MG TABLET PO SCH (09:58)
[2022-04-21] MEDS: amLODIPine BESYLATE 10 MG TABLET PO SCH (09:59)
[2022-04-21] MEDS: CEFEPIME 1 GM in D5W 50 ML IV SCH ×2 (11:02→22:37)
--- NOTE | 2022-04-21 14:54 | NUR ---
Patient is safe to ambulate ad aubrey with nursing supervision. She needs to use the FWW. Patient will need assistance with pushing the IV pole. There's no need for further Physical Therapy.
[2022-04-21] MEDS: LATANOPROST 2.5 ML DROPS (XALATAN) OP SCH (21:00)
[2022-04-21] MEDS: SENNOSIDES 8.6 MG TABLET PO SCH (22:16)
[2022-04-21] MEDS: GABAPENTIN 300 MG CAPSULE PO SCH (22:17)
[2022-04-21] MEDS: ATORVASTATIN 10 MG TABLET PO SCH (22:18)
[2022-04-21] MEDS: GEMFIBROZIL 600 MG TABLET (LOPID) PO SCH (22:39)
[2022-04-22] MEDS: traMADol HCL HCL 50 MG TABLET (ULTRAM) PO SCH ×2 (02:46→20:46)
[2022-04-22 07:00] VITALS: BP_SYST 114
[2022-04-22] MEDS: GLIMEPIRIDE 2 MG TABLET PO SCH ×2 (07:07→17:21)
[2022-04-22 08:00] VITALS: BP_SYST 114
[2022-04-22] MEDS: amLODIPine BESYLATE 10 MG TABLET PO SCH (09:00)
[2022-04-22] MEDS: METOPROLOL TARTRATE 25 MG TABLET PO SCH ×2 (09:00→20:49)
[2022-04-22] MEDS: lisinopriL 20 MG TABLET PO SCH (09:00)
[2022-04-22] MEDS: PANTOPRAZOLE SODIUM 40 MG TAB PO SCH (09:30)
[2022-04-22] MEDS: FLUCONAZOLE 100 MG TABLET (DIFLUCAN) PO SCH (09:30)
[2022-04-22] MEDS: DOCUSATE SODIUM 250 MG CAPSULE PO SCH ×2 (09:30→20:47)
[2022-04-22] MEDS: LACTOBACILLUS RHAMNOSUS GG 1 CAP CAPSULE PO SCH ×2 (09:30→20:47)
[2022-04-22] MEDS: CEFEPIME 1 GM in D5W 50 ML IV SCH ×2 (09:33→20:50)
[2022-04-22] MEDS: CLOTRIMAZOLE/BETAMET DIPROP 15 GM TUBE TP SCH ×2 (09:43→21:01)
[2022-04-22] MEDS: MUPIROCIN 2% TOPICAL OINTMENT 22 GM NS SCH ×2 (09:43→21:00)
[2022-04-22] MEDS: LINEZOLID 300 ML IV SCH ×2 (11:44→22:39)
[2022-04-22 12:00] VITALS: BP_SYST 123
[2022-04-22 12:41] VITALS: BP_SYST 113
[2022-04-22 16:00] VITALS: BP_SYST 135
--- NOTE | 2022-04-22 17:44 | NUR ---
IRRIGATED FC 18 YAKUT WITH STERILE WATER 60ML. NO BLOOD CLOTS, SLIGHT HEMATURIA. WILL CONT TO MONITOR PT
--- NOTE | 2022-04-22 19:23 | NUR ---
END OF SHIFT REPORT GIVEN TO MAGALI LOW. THANK YOU
[2022-04-22 20:06] VITALS: BP_SYST 148
--- NOTE | 2022-04-22 20:11 | NUR ---
RECEIVED PT LYING IN BED, NO DISTRESS NOTED, HAS SOME DISCOMFORT TO BACK. IV SITE TO RT WRIST SITE CDI. F/C INTACT, [place] COLOR, NO BLOOD CLOTS OR TINGED BLOOD NOTED. WILL CONTINUE TO MONITOR. Addendum: 04/23/22 at 0202 by [facility] psych therapist 0200: UPON GETTING UP TO THE BATHROOM, URINE APPEARS TINGED PINK. HAVE BEEN IRRIGATING F/C NO CLOTS NOTED.
[2022-04-22] MEDS: GABAPENTIN 300 MG CAPSULE PO SCH (20:47)
[2022-04-22] MEDS: ATORVASTATIN 10 MG TABLET PO SCH (20:47)
[2022-04-22] MEDS: GEMFIBROZIL 600 MG TABLET (LOPID) PO SCH (20:47)
[2022-04-22] MEDS: SENNOSIDES 8.6 MG TABLET PO SCH (20:48)
[2022-04-22] MEDS: LATANOPROST 2.5 ML DROPS (XALATAN) OP SCH (21:05)
[2022-04-23 00:42] VITALS: BP_SYST 143
[2022-04-23] MEDS: LEVOTHYROXINE SODIUM 0.075 MG TABLET PO SCH (05:49)
[2022-04-23] MEDS: LINZESS 145 MCG PO SCH (07:00)
[2022-04-23] MEDS: GLIMEPIRIDE 2 MG TABLET PO SCH ×2 (07:02→17:41)
[2022-04-23 08:00] VITALS: BP_SYST 110
[2022-04-23] MEDS: LACTOBACILLUS RHAMNOSUS GG 1 CAP CAPSULE PO SCH ×2 (08:49→21:34)
[2022-04-23] MEDS: DOCUSATE SODIUM 250 MG CAPSULE PO SCH ×2 (08:49→21:34)
[2022-04-23] MEDS: PANTOPRAZOLE SODIUM 40 MG TAB PO SCH (08:50)
[2022-04-23] MEDS: FLUCONAZOLE 100 MG TABLET (DIFLUCAN) PO SCH (08:50)
[2022-04-23] MEDS: METOPROLOL TARTRATE 25 MG TABLET PO SCH ×2 (08:52→21:00)
[2022-04-23] MEDS: amLODIPine BESYLATE 10 MG TABLET PO SCH (08:53)
[2022-04-23] MEDS: lisinopriL 20 MG TABLET PO SCH (08:54)
[2022-04-23] MEDS: EMPAGLIFLOZIN 10 MG PO SCH (08:54)
[2022-04-23] MEDS: CEFEPIME 1 GM in D5W 50 ML IV SCH ×2 (08:56→21:27)
[2022-04-23] MEDS: LINEZOLID 300 ML IV SCH ×2 (11:13→21:35)
[2022-04-23] MEDS: MUPIROCIN 2% TOPICAL OINTMENT 22 GM NS SCH ×2 (14:20→21:34)
[2022-04-23] MEDS: CLOTRIMAZOLE/BETAMET DIPROP 15 GM TUBE TP SCH ×2 (14:21→21:00)
[2022-04-23 20:00] VITALS: BP_SYST 116
[2022-04-23] MEDS: SENNOSIDES 8.6 MG TABLET PO SCH (21:00)
[2022-04-23] MEDS: traMADol HCL HCL 50 MG TABLET (ULTRAM) PO SCH (21:09)
[2022-04-23] MEDS: LATANOPROST 2.5 ML DROPS (XALATAN) OP SCH (21:34)
[2022-04-23] MEDS: ATORVASTATIN 10 MG TABLET PO SCH (21:34)
[2022-04-23] MEDS: GABAPENTIN 300 MG CAPSULE PO SCH (21:34)
[2022-04-23] MEDS: GEMFIBROZIL 600 MG TABLET (LOPID) PO SCH (21:35)
[2022-04-24] MEDS: traMADol HCL HCL 50 MG TABLET (ULTRAM) PO SCH ×2 (04:22→23:16)
[2022-04-24] MEDS: LINZESS 145 MCG PO SCH (05:58)
[2022-04-24] MEDS: GLIMEPIRIDE 2 MG TABLET PO SCH ×2 (06:04→17:23)
[2022-04-24] MEDS: LEVOTHYROXINE SODIUM 0.075 MG TABLET PO SCH (06:04)
[2022-04-24 06:54] LABS: BASOPHILS # (AUTO) 0.1 K/uL (0.0-0.2); BASOPHILS % (AUTO) 0.9 % (0.0-2.0); EOSINOPHILS # (AUTO) 0.4 K/uL (0.0-0.4); HEMATOCRIT 37.6 % (36-48); HEMOGLOBIN 12.8 g/dL (12.0-16.0); LYMPHOCYTES # (AUTO) 2.4 K/uL (1.0-5.5); LYMPHOCYTES % (AUTO) 25.6 % (20.5-51.5); MEAN CORPUSCULAR HEMOGLOBIN 28 pg (27-31); MEAN CORPUSCULAR HGB CONC 34 % (32-36); MEAN CORPUSCULAR VOLUME 83 fL (79.0-98.0); MONOCYTES # (AUTO) 0.9 K/uL (0.0-1.0); MONOCYTES % (AUTO) 9.3 % (1.7-9.3); NEUTROPHILS # (AUTO) 5.7 K/uL (1.8-7.7); NEUTROPHILS % (AUTO) 60.2 % (40.0-70.0); PLATELET COUNT (AUTO) 207 K/uL (130-430); RED BLOOD CELL COUNT(AUTO) 4.51 MIL/uL (4.2-6.2); RED CELL DISTRIBUTION WIDTH 14.8 % (9.0-15.0); WHITE BLOOD COUNT (AUTO) 9.4 K/uL (4.8-10.8)
[2022-04-24 07:39] LABS: ANION GAP 10 (5-15); CALCIUM 9.9 mg/dL (8.4-11.0); CHLORIDE 101 mmol/L (98-107); CREATININE 1.28 mg/dL (0.55-1.30); GLUCOSE 126 mg/dL (70-99); POTASSIUM 3.9 mmol/L (3.5-5.1); SODIUM SERUM 135 mmol/L (136-145); UREA NITROGEN, BLOOD 28 mg/dL (8-21)
[2022-04-24] MEDS: PANTOPRAZOLE SODIUM 40 MG TAB PO SCH (08:59)
[2022-04-24] MEDS: lisinopriL 20 MG TABLET PO SCH (08:59)
[2022-04-24] MEDS: FLUCONAZOLE 100 MG TABLET (DIFLUCAN) PO SCH (08:59)
[2022-04-24] MEDS: LACTOBACILLUS RHAMNOSUS GG 1 CAP CAPSULE PO SCH ×2 (09:00→21:48)
[2022-04-24] MEDS: amLODIPine BESYLATE 10 MG TABLET PO SCH (09:00)
[2022-04-24] MEDS: EMPAGLIFLOZIN 10 MG PO SCH (09:00)
[2022-04-24] MEDS: DOCUSATE SODIUM 250 MG CAPSULE PO SCH ×2 (09:00→21:48)
[2022-04-24] MEDS: METOPROLOL TARTRATE 25 MG TABLET PO SCH ×2 (09:00→21:00)
[2022-04-24] MEDS: MUPIROCIN 2% TOPICAL OINTMENT 22 GM NS SCH ×2 (09:03→21:48)
[2022-04-24] MEDS: CLOTRIMAZOLE/BETAMET DIPROP 15 GM TUBE TP SCH ×2 (09:03→21:00)
[2022-04-24] MEDS: CEFEPIME 1 GM in D5W 50 ML IV SCH (09:44)
[2022-04-24 09:53] VITALS: BP_SYST 129
--- NOTE | 2022-04-24 11:24 | NUR ---
UROLOGIST DR Pj JOSEPH WAS CALLED, RE: PT GETTING ANXIOUS SEEING BLOOD IN HER URINE. LEFT A VOICE MESSAGE INSTRUCTED.
[2022-04-24 12:00] VITALS: BP_SYST 128
[2022-04-24 20:00] VITALS: BP_SYST 133
[2022-04-24] MEDS: LATANOPROST 2.5 ML DROPS (XALATAN) OP SCH (21:46)
[2022-04-24] MEDS: GABAPENTIN 300 MG CAPSULE PO SCH (21:46)
[2022-04-24] MEDS: ATORVASTATIN 10 MG TABLET PO SCH (21:47)
[2022-04-24] MEDS: GEMFIBROZIL 600 MG TABLET (LOPID) PO SCH (21:47)
[2022-04-24] MEDS: SENNOSIDES 8.6 MG TABLET PO SCH (21:48)
[2022-04-25 02:00] VITALS: BP_SYST 120
[2022-04-25] MEDS: traMADol HCL HCL 50 MG TABLET (ULTRAM) PO SCH ×2 (06:00→12:00)
[2022-04-25] MEDS: GLIMEPIRIDE 2 MG TABLET PO SCH (06:45)
[2022-04-25] MEDS: LEVOTHYROXINE SODIUM 0.075 MG TABLET PO SCH (06:52)
[2022-04-25 07:40] LABS: ANION GAP 11 (5-15); CALCIUM 9.9 mg/dL (8.4-11.0); CHLORIDE 102 mmol/L (98-107); CREATININE 1.56 mg/dL (0.55-1.30); GLUCOSE 119 mg/dL (70-99); POTASSIUM 4.1 mmol/L (3.5-5.1); SODIUM SERUM 137 mmol/L (136-145); UREA NITROGEN, BLOOD 31 mg/dL (8-21)
[2022-04-25 08:00] VITALS: BP_SYST 112
--- NOTE | 2022-04-25 08:00 | NUR ---
Notes- awake, oriented, uses walker to ambulate. denies any hematuria last night. denies any pain. Wants to go home.
[2022-04-25 08:31] LABS: BASOPHILS # (AUTO) 0.1 K/uL (0.0-0.2); EOSINOPHILS # (AUTO) 0.3 K/uL (0.0-0.4); EOSINOPHILS % (AUTO) 3.5 % (0.0-4.0); HEMATOCRIT 36.8 % (36-48); HEMOGLOBIN 12.3 g/dL (12.0-16.0); LYMPHOCYTES # (AUTO) 2.3 K/uL (1.0-5.5); LYMPHOCYTES % (AUTO) 24.8 % (20.5-51.5); MEAN CORPUSCULAR HEMOGLOBIN 28 pg (27-31); MEAN CORPUSCULAR HGB CONC 33 % (32-36); MEAN CORPUSCULAR VOLUME 84 fL (79.0-98.0); MONOCYTES # (AUTO) 0.9 K/uL (0.0-1.0); MONOCYTES % (AUTO) 9.3 % (1.7-9.3); NEUTROPHILS # (AUTO) 5.7 K/uL (1.8-7.7); NEUTROPHILS % (AUTO) 61.4 % (40.0-70.0); PLATELET COUNT (AUTO) 206 K/uL (130-430); RED BLOOD CELL COUNT(AUTO) 4.37 MIL/uL (4.2-6.2); RED CELL DISTRIBUTION WIDTH 15.2 % (9.0-15.0); WHITE BLOOD COUNT (AUTO) 9.3 K/uL (4.8-10.8)
[2022-04-25] MEDS: MUPIROCIN 2% TOPICAL OINTMENT 22 GM NS SCH (09:00)
[2022-04-25] MEDS: amLODIPine BESYLATE 10 MG TABLET PO SCH (09:00)
[2022-04-25] MEDS: METOPROLOL TARTRATE 25 MG TABLET PO SCH (09:00)
[2022-04-25] MEDS: lisinopriL 20 MG TABLET PO SCH (09:00)
[2022-04-25] MEDS: EMPAGLIFLOZIN 10 MG PO SCH (09:00)
[2022-04-25] MEDS: DOCUSATE SODIUM 250 MG CAPSULE PO SCH (09:52)
[2022-04-25] MEDS: LACTOBACILLUS RHAMNOSUS GG 1 CAP CAPSULE PO SCH (09:52)
[2022-04-25] MEDS: PANTOPRAZOLE SODIUM 40 MG TAB PO SCH (09:52)
[2022-04-25] MEDS: FLUCONAZOLE 100 MG TABLET (DIFLUCAN) PO SCH (09:53)
[2022-04-25] MEDS: CLOTRIMAZOLE/BETAMET DIPROP 15 GM TUBE TP SCH (10:02)
[2022-04-25] MEDS: ACETAMINOPHEN 325 MG TABLET PO PRN (12:01)
[2022-04-25 12:27] VITALS: BP_SYST 119
--- NOTE | 2022-04-25 12:33 | NUR ---
notes- bladder scan post void is 17ml.
[2022-04-25 12:35] VITALS: BP_SYST 119
--- NOTE | 2022-04-25 13:49 | NUR ---
discharge patient home, awake alert and oriented. Denies any chest pain or discomfort. Discharge instruction and follow up given and discussed to patient. Patient verbalize understanding. IVL removed.
--- NOTE | 2022-04-27 13:59 | NUR ---
Discharge Planning: DCP faxed pt referral to [facility] [phone] DCP to follow up Addendum: 04/27/22 at 1500 by Elba Zayas DP [facility] [phone] accepted pt
== END 2022-04-25 13:50 | disposition home health service (06) | DRG 689 ==
LOC: SED 21:02 → SMU 04-18 05:41 → STU 04-18 20:11 → SMU 04-18 20:25
PROVIDERS: ADMIT Family Medicine; ATTEND Family Medicine
PROC: 0TPB70Z Removal of Drainage Device from Bladder, Via Natural or Artificial Opening (ICD-10-PCS; principal; 2022-04-18)
DX: N30.91 Cystitis, unspecified with hematuria (principal); N17.0 Acute kidney failure with tubular necrosis; Z68.41 Body mass index [BMI] 40.0-44.9, adult; E11.9 Type 2 diabetes mellitus without complications; E78.5 Hyperlipidemia, unspecified; E66.9 Obesity, unspecified; N81.89 Other female genital prolapse; Z20.822 Contact with and (suspected) exposure to COVID-19; I12.9 Hypertensive chronic kidney disease with stage 1 through stage 4 chronic kidney disease, or unspecified chronic kidney disease; E11.22 Type 2 diabetes mellitus with diabetic chronic kidney disease; N18.9 Chronic kidney disease, unspecified; Z88.1 Allergy status to other antibiotic agents; Z88.5 Allergy status to narcotic agent; Z88.8 Allergy status to other drugs, medicaments and biological substances; Z79.899 Other long term (current) drug therapy; Z90.710 Acquired absence of both cervix and uterus; Z87.440 Personal history of urinary (tract) infections
CPT/HCPCS: 36415; 71045; 76770; 80048; 80053; 81000; 82962; 83605; 84484; 85025; 85610-TC; 85730-TC; 87040; 87081; 87086; 93005; 96365; 99285; J0692; J0696; J1815; J2020; J2405; J7060